=== PATIENT | male | born 1985 | race Caucasian/White ===

== ENCOUNTER 2023-10-29 12:21 | Outpatient (AMB) | payer OTHER, SELFPAY ==
--- NOTE | 2023-10-29 12:25 | A.OFFPC_ITS ---
Vital Signs 10/29/23 12:26 Height 5 ft 10 in Weight 231 lb BMI 33.1 BP 126/82 Blood Pressure Location Rt brachial Position Sitting Respiration 16 Pulse 83 Pulse Source Pulse Oximeter Temp 98.4 F Temp Source Temporal Artery Scan Pulse Oximetry (%) 96 Oxygen Delivery Method Room Air Intake Visit Reasons: est care Intake Note: Patient is here to establish care with KO. Patient shares concern for sleep apnea and/or constant sinus infections. Patient reports history of sinusitis 3 months in a row while living in [place]. Patient did not know what his medication doses are. 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 Accompanied by: Self / Same As Patient Allergies No Known Allergies Allergy (Verified 10/29/23 13:02) Tobacco use date assessed: 10/29/23 Dental Screening Dental Screen Date: 10/29/23 Did you have a dental visit in the last 12 months?: No Did you have a dental problem in the last 6 months where you did not have access to dental care?: No Was dental information given to patient?: Patient has dentist HPI HPI Comments History of Present Illness Details 38 y/o M with recurrent sinusitis, seaso nal allergies, bipolar 2, obesity, chronic upper back/neck pain Specialists: Psychiatry Health maintenance Tdap today Here today to est care. No old medical records last few months, nonstop nasal congestion. Left ear feels plugged. Assoc w/seasonal allergies. Using nasal saline. Has not been on AB recently for sinuses. Reports > 1 year ago. States he felt better after this. c/o freq urination over the last few years. Denies hematuria, dysuria. Reports wheezing, dyspnea on exertion. He has not been formally diagnosed with asthma. [facility] Medical History (Updated 10/29/23 @ 13:27 by Mary Coleman [facility]) Headache Bipolar 2 disorder Depression Anxiety GERD (gastroesophageal reflux disease) Surgical History (Updated 10/29/23 @ 12:50 by Lea Waite CMA) No pertinent past surgical history Family History (Updated 10/29/23 @ 12:48 by Lea Waite CMA) Mother Bipolar 2 disorder Hypertension Other Mental health disorder Social History (Updated 10/29/23 @ 12:42 by Lea Waite CMA) Household Members: Family Both parents involved: No Caregiver staying overnight: No Housing: House Housing Other:: With Brother Are you a primary critical care unit nurse to a significant other at home: No Do you presently have visiting nurse or other home services: No 75 years or older and lives alone: No Alcohol intake: never Patient Tobacco Use Status: Former Tobacco user Cigarette Packs Per Day: 0.5 Years Smoked: 10 e-Cigarette/Vaping Use: Currently Using Substance Use Type: Marijuana service: No Current occupational status: employed Current occupation: [employer] Current occupational exposures/hazards: No Sexual orientation: Straight/Heterosexual Gender identity: Male Cognitive needs: No Hearing needs: No Vision needs: Yes (wears glasses) Questionnaire PHQ-9 Over the last 2 weeks, how often have you been bothered by any of the following problems? 1. Little interest or pleasure in doing things: not at all 2. Feeling down, depressed, or hopeless: not at all 3. Trouble falling or staying asleep, or sleeping too much: nearly every day 4. Feeling tired or having little energy: nearly every day 5. Poor appetite or overeating: more than half the days 6. Feeling bad about yourself - or that you are a failure or have let yourself or your family down: several days 7. Trouble concentrating on things, such as reading the newspaper or watching television: not at all 8. Moving or speaking so slowly that other people could have noticed. Or the opposite - being so fidgety or restless that you have been moving around a lot more than usual: not at all 9. Thoughts that you would be better off or of hurting yourself in some way: not at all Total score: 9 Depression Screening Interpretation: Positive Depression Screening Follow-up: Existing condition and In treatment Depression Screening Done: Yes 53811 - PHQ-9 Billing: Yes Source: Developed by Drs. Sholmo Taylor, Sandra Reyes, David Monte and colleagues, with an educational nathaniel from [employer]. Thrive Questionnaire Date Thrive assessed: 10/29/23 I am a: Patient What is your living situation today?: I have a steady place to live Within the past 12 months, did the food you bought not last and you didn't have the money to get more?: Sometimes True Within the past 12 months, did you worry whether your food would run out before you got money to buy more?: Never true Do you have trouble paying for medicines?: No Do you have trouble getting transportation to medical appointments?: No Do you have trouble paying your heating and electricity bill?: No Do you have trouble taking care of your child, family member or friend?: No Do you have trouble with day-to-day activities such as bathing, preparing meals, shopping, managing finances, etc.?: No Are you currently unemployed and looking for a job?: Yes Are you interested in more education?: Yes Please select the resources that you would like help with: Job search/training Currently or been in a relationship where the following occur: no concerns reported THRIVE Score: 1 AUDIT C Alcohol Use Questionnaire (AUDIT-C) 1. How often do you have a drink containing alcohol?: Never 3. How often do you have six or more drinks on one occasion?: Never Total Score: 0 Score Reviewed/Action Taken: Yes IDANIA-7 AMB Questionnaire IDANIA-7 Date IDANIA - 7 assessed: 10/29/23 Feeling nervous, anxious, or on edge: 1 = Several days Not being able to stop or control worryin = More than half the days Worrying too much about different things: 2 = More than half the days Trouble relaxin = Several days Being so restless that it is hard to sit still: 0 = Not at all Becoming easily annoyed or irritable: 0 = Not at all Feeling afraid as if something awful might happen: 1 = Several days Total IDANIA-7 score (0-4 normal; 5-9 mild; 10-14 moderate; 15-21 severe): 7 Source: Developed by Drs. Shlomo Taylor, Sandra Reyes, David Monte and colleagues, with an educational nathaniel from [employer]. IDANIA-7 Assessment Billing IDANIA-7 Assessment Tool: IDANIA-7 Assessment 75371 Review of Systems Const All systems reviewed & are unremarkable except as noted in HPI and below Physical exam (Primary Care) Vital Signs: Last Vital Signs Temp 98.4 F 10/29/23 12:26 Pulse 83 10/29/23 12:26 Resp 16 10/29/23 12:26 BP 126/82 10/29/23 12:26 Pulse Ox 96 10/29/23 12:26 Oxygen Delivery Method Room Air 10/29/23 12:26 BMI result Body Mass Index 33.1 BMI Assessment/Plan discussion: High BMI High, discussed plan: lifestyle Tobacco/Smoking Status: Tobacco use Status Tobacco use date assessed 10/29/23 10/29/23 12:34 Patient Tobacco Use Status Former Tobacco user 10/29/23 12:45 e-Cigarette/Vaping Use Currently Using 10/29/23 12:45 PHQ-9: PHQ-9 Score PHQ-9: Total score 9 10/29/23 13:30 Depression Screening Interpretation: Positive Depression Screening Follow-up: Existing condition and In treatment Thrive Assessment: Date of Thrive Assessment Date Thrive assessed 10/29/23 10/29/23 12:45 Currently or been in a relationship where the following occur: no concerns reported Const Other: AWAKE ALERT NAD SCLERA AND CONJUNCTIVA CLEAR BILAT TM INTACT bilat with fluid bubbles bilat L>R Nares w/ thick mucoid d/c, turbinates pale and edematous bilat L>R, frontal sinus tenderness w palp MMM, PHARYNX + PND RRR LS CTAB, dim throughout Immunizations Boostrix Tdap 2.5 Lf unit-8 mcg-5 Lf/0.5 mL intramuscular syringe Performing Provider: SHELLY Flower Performing Location: [facility] Medicine Administered by: Lea Waite CMA on 10/29/23 13:31 Dose Route Admin Location Dispensed Lot Number Expiration Date NDC Oil Well Shooter 0.5 mL IM Left Deltoid 0.5 mL [id number] 02/03/26 [id number] Given Date VIS Provided VIS Publication Date 10/29/23 Single Vaccine 21 Eligibility Eligibility Date Funding Source Not [facility] Eligible 10/29/23 Private Assessment and Plan Assessment & Plan (1) Seasonal allergies: Comment: Continue use of kigh-rgj-qomtegj antihistamine. Refer to Allergy and immunology for testing and treatment. New prescription sent in for Nasonex 2 sprays each nostril daily. Okay to continue saline nasal rinses Code(s): J30.2 - Other seasonal allergic rhinitis (2) Recurrent sinusitis: Comment: Refer to Allergy and immunology. Has an acute bacterial infection. We will treat with antibiotics and prednisone. Take as directed. Avoid nasal decongestants both oral and sprays. Code(s): J32.9 - Chronic sinusitis, unspecified (3) Class 1 obesity with alveolar hypoventilation and body mass index (BMI) of 33.0 to 33.9 in adult: Comment: Education provided Code(s): E66.2 - Morbid (severe) obesity with alveolar hypoventilation; Z68.33 - Body mass index [BMI] 33.0-33.9, adult Qualifiers: Serious obesity comorbidity presence: without serious comorbidity Qualified Code(s): E66.2 - Morbid (severe) obesity with alveolar hypoventilation; Z68.33 - Body mass index [BMI] 33.0-33.9, adult (4) Wheezing: Comment: Noted on exam. Patient endorses a history of wheezing and feeling breathless with exertion. Has never been formally diagnosed with asthma. Has never used an inhaler. We will check PFTs to establish a baseline and or determine an asthma diagnosis. Code(s): R06.2 - Wheezing (5) Encounter for screening involving social determinants of health (SDoH): Comment: Refer to nurse navigation for a positive thrive screen. Code(s): Z13.9 - Encounter for screening, unspecified (6) Bipolar 2 disorder: Comment: Active with counselor and psychiatrist. Continue care and medications Code(s): F31.81 - Bipolar II disorder (7) Marijuana use: Comment: Cessation education provided Code(s): F12.90 - Cannabis use, unspecified, uncomplicated Orders: Orders Comprehensive [place]. Panel Fast Today Z00.00 - Encounter for general adult medical examination without abnormal findings Lipid Panel Today Z00.00 - Encounter for general adult medical examination without abnormal findings Microalbumin, Random (w Creat) Today Z00.00 - Encounter for general adult medical examination without abnormal findings TSH reflex Free T4 Today Z00.00 - Encounter for general adult medical examination without abnormal findings PSA, Ultra Sensitive Today Z00.00 - Encounter for general adult medical examination without abnormal findings UA w Microscopic Today Z00.00 - Encounter for general adult medical examination without abnormal findings Hemoglobin A1c Today Z00.00 - Encounter for general adult medical examination without abnormal findings Vitamin D 1,25 dihydroxy Today Z00.00 - Encounter for general adult medical examination without abnormal findings PFT pulmonary function test Today R06.2 - Wheezing TDaP Immunization Today Z23 - Encounter for immunization Referrals Nurse Navigator Referral Z13.9 - Encounter for screening, unspecified Allergy & Immunology Referral J30.2 - Other seasonal allergic rhinitis, J32.9 - Chronic sinusitis, unspecified Medications: New amoxicillin-pot clavulanate 875-125 mg 1 tab PO BID 14 tabs 0RF 7 days prednisone 20 mg PO DAILY 5 tabs 0RF mometasone 50 mcg/actuation (Nasonex 24hr Allergy) administer into each nostril 2 sprays intranasal DAILY 17 grams 3RF Patient Instructions: Return to office in 6-8 weeks to follow up on labs, PFTs. Sooner if you need anything. Please set up with the patient portal. Marijuana: Natural = Safe, Right? Marijuana is readily available to use in many states in the [facility]. Understanding the possible risks of use is important to ensure the safety. No matter how you use marijuana (smoke it, eat it, or apply to your skin), it may cause problems with both short term and ocean transportation intermediary use How marijuana affects your BRAIN: Potential effects from Short Term Use Poor focus, memory and reaction time Difficulty with problem solving Hallucinations, paranoia, anxiety Potential effects from Grid Maker Use Memory problems and trouble learning new things Depression, hallucinations, paranoia, anxiety, worsening PTSD symptoms addiction Brain. It is not safe to drive while on marijuana. It makes it hard to mail messenger contractor distance, concentrate, react quickly to signals and sounds, be alert and coordinated. If alcohol is combined, this risk is even higher! In regular users, some of the effects from jail use may last for days or even weeks after stopping marijuana. How inhaling marijuana affects your LUNGS: Inhaling harmful chemicals Gases Small particles Carcinogens (toxins linked to cancer) Breathing problems similar to tobacco smokers Daily cough with mucus Difficulty breathing Lung infections (bronchitis, pneumonia) Lungs How marijuana affects your HEART: Increases risk of heart attack Within the first hour of smoking Increases heart rate 20?100% increase after smoking Increase lasts up to three hours Changes in heart rhythm Feels like your heart skips a beat, or is fluttering, or beating too fast or too slow Heart Is it SAFE to use marijuana with other medications? A combination that can be concerning is the use of opioids and/or benzodiazepines with marijuana. Opioids + Benzodiazepines + Marijuana: Drowsiness: All three can cause drowsiness. Reaction time: All three can reduce reaction time. Do not drive or operate machinery. Overdose: Opioids and Benzodiazepines can cause reduced breathing and in some cases, breathing can stop and a person can . Marijuana containing higher levels of THC may cause difficulty with thinking and memory and this could result in medication errors where extra doses of opioids, benzodiazepines, or other medications may be taken. What is the harm? Example of Opioids Morphine (MS Contin?, Kailee?) Oxycodone (Percocet?, OxyContin?) Hydrocodone (Vicodin?, [place]?) Fentanyl (Duragesic?) Methadone Heroin Example of Benzodiazepines Lorazepam (Ativan?) Diazepam (Valium?) Alprazolam (Xanax?) Clonazepam (Klonopin?) If you have specific questions about the safety of using marijuana with other medications, please contact your provider or pharmacist. Some marijuana users can become addicted! You can have problems with marijuana withdrawal. You may have withdrawal symptoms the day after you stop using. These can get worse 2 to 3 days after using and can take 1 to 2 weeks or longer to go away. Recovery and Treatment Contact your provider or health care team if you are having concerns about your marijuana use or to learn more about available treatment services. The marijuana plant is not an FDA-approved medicine: The U.S. Food and Drug Administration (FDA) has not approved the marijuana plant as a medication due to lack of studies on the risks and benefits. Marijuana contains over 100 chemical substances known as cannabinoids. Some of these, like tetrahydrocannabinol (THC), have mind altering effects and can be intoxicating. Cannabidiol (CBD), another cannabinoid, does not cause the same ?high? users of THC experience. THC has been studied for the treatment of several conditions, including nausea and increasing appetite. CBD is similarly being studied for a number of conditions, including childhood epilepsy and inflammation. What is dif ferent between the marijuana product I get from the marijuana shop and a prescription from the pharmacy? The right dose of any medicine is important. A specific dose of THC is approved to treat nausea, but high doses of THC may cause vomiting. The ingredients in a medicine must be measured and stay the same from one dose to the next. The marijuana plant contains unknown ingredients that change from plant to plant. This makes it hard to control the ?dose? of marijuana needed to treat a condition and use it in the same way we use other medicines. Future studies are ongoing to establish the role of the marijuana plant and the cannabinoids found in the plant for treatment of medical conditions. If you have questions about using a marijuana product for a medical condition, please discuss this with your medical provider to determine the most appropriate treatment for you. [place] Providers are not able to prescribe marijuana products. Information in this document was compiled by the [facility] of Excellence in Substance Abuse treatment and Education ([facility]). It contains information from factsheets by the National [place] on Drug Abuse (www.drugabuse.gov) and presentation by Mable Burnham, Mable Moore, & Radha Bhatia (2010) entitled ?What providers need to know about cannabis use in Veterans with mental health conditions: Research, policy, practice,? and an additional reference: Susy Underwood M.D., Donte Hernandez, Ph.D., Bran Dominguez M.D., and Denae Quinones, Ph.D: Adverse Effects of Marijuana. N Engl J Med 2014; 370:8615-3517, December 01, 2013 DOI: 10.1056/FSOPey1542832. [facility] Academic Detailing Service What Is It? Sinuses are air-filled spaces behind the bones of the upper face: between the eyes and behind the forehead, nose and cheeks. The lining of the sinuses are made up of cells with tiny hairs on their surfaces called cilia. Other cells in the lining produce mucus. The mucus traps germs and pollutants and the cilia push the mucus out through narrow sinus openings into the nose. When the sinuses become inflamed or infected, the mucus thickens and clogs the openings to one or more sinuses. Fluid builds up inside the sinuses causing increased pressure. Also bacteria can become trapped, multiply and infect the lining. This is sinusitis. Prevention There are some measures you can take to decrease your risk of developing sinusitis. If you smoke cigarettes, you should quit. The smoke can irritate nasal passageways and increase the likelihood of infection. Nasal allergies can trigger sinus infections, too. By identifying the allergen (the substance causing the allergic reaction) and avoiding it, you can help prevent sinusitis. If you have congestion from a cold or allergies, the following may help to reduce the risk of developing sinusitis: Drink lots of water. This thins nasal secretions and keeps mucous membranes moist. Use steam to soothe nasal passages. Breathe deeply while standing in a hot shower, or inhale the vapor from a basin filled with hot water while holding a towel over your head. Avoid blowing your nose with great force, which can push bacteria into the sinuses. Some doctors advise periodic home nasal washings to clear secretions. This may help prevent, and also treat, sinus infections. Treatment Many sinus infections improve without treatment. However, several medications may speed recovery and reduce the chance that an infection will become chronic. Decongestants - Congestion often triggers sinus infections, and decongestants can open the sinuses and allow them to drain. Several are available: Pseudoephedrine (Sudafed) is available without prescription, alone or in combination with other medications in multi-symptom cold and sinus remedies. Pseudoephedrine can cause insomnia, racing pulse and jitteriness. Do not use if you have high blood pressure or a heart condition. Phenylephrine (such as Sudafed PE) is an alternative jrmw-xhz-bplsolg oral decongestant. If you take products containing oral phenylephrine, check with the pharmacist to be certain there is no interaction with other medications you take. Oxymetazoline (Afrin Dristan and others) and phenylephrine (Sergio-Synephrine and others) are found in nasal sprays. They are effective and may be less likely to cause the side effects seen with pseudoephedrine. However, using a nasal decongestant for more than three days can cause worse symptoms when you stop the medication. This is called the rebound effect. Antihistamines - These medications help to relieve the symptoms of nasal allergies that lead to inflammation and infections. However, some doctors advise against using antihistamines during a sinus infection because they can cause excessive drying and slow the drainage process. Bqsy-avt-rpmanym antihistamines include diphenhydramine (Benadryl and others), chlorpheniramine (Chlor-Trimeton and others) and loratadine (Claritin). Fexofenadine (Crystal) and cetrizine (Zyrtec) are available by prescription. Nasal steroids - Anti-inflammatory sprays such as mometasone (Nasonex) and fluticasone (Flonase), both available by prescription, reduce swelling of nasal membranes. Like antihistamines, nasal steroids can be most useful for those who have nasal allergies. Nasal steroids tend to produce less drying than antihistamines. Unlike nasal decongestants, nasal steroids can be used for prolonged periods. Saline nasal sprays - These salt-water sprays are safe to use and can provide some relief by adding moisture to the nasal passages, thinning mucus secretions and helping to flush out any bacteria that may be present. Pain relievers - Acetaminophen (Tylenol), ibuprofen (Advil, Motrin and others) or naproxen (Aleve) can be taken sinus pain. Antibiotics - Your doctor may prescribe an antibiotic if he or she suspects that a bacterial infection is causing your sinusitis. If you start taking an antibiotic, complete the entire course so that the infection is completely killed off. Not all cases of sinusitis require antibiotic treatment: Talk with your doctor about whether an antibiotic is right for you. Keep in mind that antibiotics can cause side effects, such as allergic reactions, rash and diarrhea. In addition, overusing antibiotics eventually leads to the spread of bacteria that no longer can be killed by the most commonly prescribed antibiotics. When To Call A Professional Contact a doctor if you experience facial pain along with a headache and fever, cold symptoms that last longer than seven to 10 days, or persistent green discharge from the nose. If your symptoms don't improve within a week of beginning treatment, call your doctor. Call sooner if symptoms are getting worse. If you have repeated bouts of acute sinusitis, you may have allergies or another treatable cause of sinus congestion. Ask your doctor for advice. Coding Level of Care Code New Pt Level 4 (80476) Diagnoses Seasonal allergies J30.2 Recurrent sinusitis J32.9 Class 1 obesity with alveolar hypoventilation without serious comorbidity with body mass index (BMI) of 33.0 to 33.9 in adult E66.2; Z68.33 Serious obesity comorbidity presence: without serious comorbidity Wheezing R06.2 Encounter for screening involving social determinants of health (SDoH) Z13.9 Bipolar 2 disorder F31.81 Marijuana use F12.90 Additional Codes IDANIA-7 Assessment Billing - IDANIA-7 Assessment Tool: IDANIA-7 Assessment 31930 ([id number])
[2023-10-29 12:26] VITALS: BP 126/82; PULSE 83; RESP 16; TEMP 36.9; O2SAT 96; BMI 33.1
== END 2023-10-29 13:40 | disposition home or self-care (01) ==
PROVIDERS: Visit Provider Nurse Practitioner Family
DX: J30.2 Other seasonal allergic rhinitis (principal); F31.81 Bipolar II disorder; E66.2 Morbid (severe) obesity with alveolar hypoventilation; Z23 Encounter for immunization; J32.9 Chronic sinusitis, unspecified; Z68.33 Body mass index [BMI] 33.0-33.9, adult; R06.2 Wheezing; F12.90 Cannabis use, unspecified, uncomplicated
CPT/HCPCS: 90471; 90715; 99204

== ENCOUNTER 2023-12-03 10:03 | Outpatient (AMB) | payer OTHER, SELFPAY ==
--- NOTE | 2023-12-03 10:19 | MHC.PC.OV ---
Intake Visit Reasons: Rash Intake Note: Rash Allergies No Known Allergies Allergy (Verified 12/03/23 10:21) Tobacco use date assessed: 12/03/23 Dental Screening Dental Screen Date: 10/29/23 [facility] Medical History (Updated 10/29/23 @ 13:27 by Mary Coleman [facility]) Headache Bipolar 2 disorder Depression Anxiety GERD (gastroesophageal reflux disease) Surgical History (Updated 10/29/23 @ 12:50 by Lea Waite CMA) No pertinent past surgical history Family History (Updated 10/29/23 @ 12:48 by Lea Waite CMA) Mother Bipolar 2 disorder Hypertension Other Mental health disorder Social History (Updated 10/29/23 @ 12:42 by Lea Waite CMA) Household Members: Family Both parents involved: No Caregiver staying overnight: No Housing: House Housing Other:: With Brother Are you a primary small animal caretaker to a significant other at home: No Do you presently have visiting nurse or other home services: No 75 years or older and lives alone: No Alcohol intake: never Patient Tobacco Use Status: Former Tobacco user Cigarette Packs Per Day: 0.5 Years Smoked: 10 e-Cigarette/Vaping Use: Currently Using Substance Use Type: Marijuana service: No Current occupational status: employed Current occupation: [employer] Current occupational exposures/hazards: No Sexual orientation: Straight/Heterosexual Gender identity: Male Cognitive needs: No Hearing needs: No Vision needs: Yes (wears glasses) Questionnaire Thrive Questionnaire Date Thrive assessed: 10/29/23 IDANIA-7 AMB Questionnaire IDANIA-7 Date IDANIA - 7 assessed: 10/29/23 Source: Developed by Drs. Shlomo Taylor, Sandra Reyes, David Monte and colleagues, with an educational nathaniel from [employer]. Physical exam (Primary Care) Tobacco/Smoking Status: Tobacco use Status Tobacco use date assessed 10/29/23 10/29/23 12:34 Patient Tobacco Use Status Former Tobacco user 10/29/23 12:45 e-Cigarette/Vaping Use Currently Using 10/29/23 12:45 Thrive Assessment: Date of Thrive Assessment Date Thrive assessed 10/29/23 10/29/23 12:45 Coding
--- NOTE | 2023-12-03 10:25 | MHC.OFFWIV ---
Intake Vital Signs 12/03/23 10:26 Height 5 ft 10 in Weight 244 lb 2 oz BMI 35.0 BP 104/78 Blood Pressure Location Rt brachial Position Sitting Respiration 14 Pulse 72 Pulse Source Pulse Oximeter Temp 97.9 F Temp Source Oral Pulse Oximetry (%) 99 Oxygen Delivery Method Room Air Intake Visit Reasons: Rash Intake Note: Rash on right side and upper left arm. Patient Tobacco Use Status: Former Tobacco user Allergies No Known Allergies Allergy (Verified 12/03/23 10:25) Medication List - Last Reconciled 12/03/23 by Acacia De PA-C amoxicillin-pot clavulanate 875-125 mg 1 tab PO BID 7 days bupropion HCl XL (Wellbutrin XL) 150 mg PO DAILY citalopram 40 mg PO DAILY clonazepam 0.5 mg (1/2 x 1 mg) PO DAILY clotrimazole 1% 1 appl topical BID 2 weeks divalproex ER (Depakote ER) 1,000 mg (2 x 500 mg) PO .AT BEDTIME fluticasone propionate 50 mcg/actuation 1 spray intranasal BID gabapentin 300 mg PO BID lamotrigine 150 mg PO DAILY prednisone 20 mg PO DAILY Do you need a note to return to daycare/school/sports/work: No HPI Rash HPI Details Patient is a 38-year-old male who presents today with complaints of a rash that started on his right low back that started about a week a half ago and then spread to his left upper arm. He states that the last 2 days it has been slightly itchy. He states for the most part it does not bother him. He states that they are ring-like and he wonders if he has ringworm. [place] he was sharing towels with people. No tick bites, fever, chills, arthralgias. No contacts with similar symptoms. He did try some hydrocortisone which did not change the symptoms at all. [facility] Medical History (Updated 12/03/23 @ 13:46 by Acacia De PA-C) Headache Bipolar 2 disorder Depression Anxiety GERD (gastroesophageal reflux disease) Surgical History (Updated 10/29/23 @ 12:50 by Lea Waite, [facility]) No pertinent past surgical history Family History (Updated 10/29/23 @ 12:48 by Lea Waite CMA) Mother Bipolar 2 disorder Hypertension Other Mental health disorder Social History (Updated 10/29/23 @ 12:42 by Lea Waite CMA) Household Members: Family Housing: House Housing Other:: With Brother Are you a primary neonatal intensive care nurse to a significant other at home: No Do you presently have visiting nurse or other home services: No Alcohol intake: never Patient Tobacco Use Status: Former Tobacco user Cigarette Packs Per Day: 0.5 Years Smoked: 10 e-Cigarette/Vaping Use: Currently Using Substance Use Type: Marijuana service: No Current occupational status: employed Current occupation: [employer] Current occupational exposures/hazards: No Sexual orientation: Straight/Heterosexual Gender identity: Male Cognitive needs: No Hearing needs: No Vision needs: Yes (wears glasses) Physical Exam Vital Signs: Last Vital Signs Temp 97.9 F 12/03/23 10:26 Pulse 72 12/03/23 10:26 Resp 14 12/03/23 10:26 BP 104/78 12/03/23 10:26 Pulse Ox 99 12/03/23 10:26 Oxygen Delivery Method Room Air 12/03/23 10:26 BMI result Body Mass Index 35.0 Const Orientation/consciousness: patient oriented x3 HEENT Ears: hearing grossly normal bilaterally Resp Auscultation: clear to auscultation bilaterally Cardio Rate: regular rate Rhythm: regular rhythm Heart sounds: S1 normal heart sound present and S2 normal heart sound present Skin Other: There is a large, circular rash noted on the right flank with a center if clearing and a raised, erythematous outer ring. There is a smaller similar rash noted on the left upper extremity that has about 6 ring-like lesions with the center of clearing and an erythematous, raised border. The area is nontender. The skin is intact. No areas of fluctuance or induration. Neuro General: patient oriented x3, gait normal and no focal motor deficits Assessment & Plan Assessment & Plan (1) Tinea corporis: Code(s): B35.4 - Tinea corporis Plan: Physical exam appears consistent with tinea. Advised patient to try clotrimazole cream. Follow up in a few weeks. If anything worsens or changes he will follow up sooner. Patient understands and agrees with the plan. Medications: New clotrimazole 1% 1 appl topical BID 2 weeks 45 grams 2RF Coding Level of Care Code Est Pt Level 3 (14342) Diagnoses Tinea corporis B35.4
[2023-12-03 10:26] VITALS: BP 104/78; PULSE 72; RESP 14; TEMP 36.6; O2SAT 99; BMI 35.0
== END 2023-12-03 10:44 | disposition home or self-care (01) ==
PROVIDERS: PCP Nurse Practitioner Family; Visit Provider Physician Assistant
DX: B35.4 Tinea corporis (principal)
CPT/HCPCS: 99213

== ENCOUNTER 2023-12-03 10:54 | Outpatient (REF) | payer OTHER, SELFPAY ==
[2023-12-03 14:18] LABS: Estimated Average Glucose 108 mg/dL; Hemoglobin A1c % 5.4 % (<6.0)
[2023-12-03 14:31] LABS: Alanine Aminotransferase 27 U/L (0-40); Albumin Level 4.4 g/dL (3.5-5.0); Alkaline Phosphatase 65 U/L (39-117); Anion Gap 13 (12-20); Aspartate Amino Transferase 18 U/L (5-37); Bilirubin Total 0.2 mg/dL (0.0-1.0); Blood Urea Nitrogen 13 mg/dL (9-16); Calcium 9.6 mg/dL (8.4-10.2); Carbon Dioxide 23 mmol/L (22-29); Chloride 108 mmol/L (96-108); Cholesterol 220 mg/dL (<200); Estimated Glomerular Filt Rate > 60; Glucose Fasting 96 mg/dL (60-99); HDL Cholesterol 53 mg/dL (>40); LDL Cholesterol Calculated 154 mg/dL (<100); Potassium 4.4 mmol/L (3.3-5.1); Sodium 140 mmol/L (135-145); Total Protein 7.3 g/dL (6.5-8.0); Triglycerides 67 mg/dL (<150)
[2023-12-03 14:48] LABS: TSH reflex Free T4 3.99 uIU/mL (0.32-4.0)
[2023-12-03 15:16] LABS: Creatinine Urine 127.97 mg/dL; Microalbum/Creatinine Ratio Ur 7.8 ug/mg cr (<30)
[2023-12-10 12:38] LABS: VITAMIN D (1,25 OH) D3 42 pg/mL; Vit D (1,25-Dihydroxy) Total 42 pg/mL (18-72); Vitamin D (1,25 OH) D2 <8 pg/mL
[2023-12-10 20:39] LABS: PSA, Ultra Sensitive 0.28 ng/mL
== END 2023-12-03 10:55 | disposition home or self-care (01) ==
LOC: HO.WFDLDS 10:54
PROVIDERS: Visit Provider Nurse Practitioner Family
DX: Z00.00 Encounter for general adult medical examination without abnormal findings (principal)
CPT/HCPCS: 36415; 80053; 80061; 82043; 82570; 82652; 83036; 84153; 84443

== ENCOUNTER 2024-01-08 13:15 | Outpatient (AMB) | payer OTHER, SELFPAY ==
--- NOTE | 2024-01-08 13:20 | A.OFFPC_ITS ---
Vital Signs 01/08/24 13:25 Height 5 ft 10 in Weight 237 lb BMI 34.0 BP 126/64 Blood Pressure Location Lt brachial Position Sitting Respiration 13 Pulse 83 Pulse Source Pulse Oximeter Pulse Oximetry (%) 98 Oxygen Delivery Method Room Air Intake Visit Reasons: 6-8 WEEKS 30 MIN W ME FU PFT, LABS Intake Note: Patient is here to follow up from appointment about 6-8 weeks ago. Patient reports he cannot get into allergy until January. Patient is interested in a referal for snoring. Ag Equipment Field Service Technician Required: No Accompanied by: Self / Same As Patient Allergies No Known Allergies Allergy (Verified 01/08/24 13:28) Medication List - Last Reconciled 01/08/24 by Mary Coleman, [employer]- bupropion HCl XL (Wellbutrin XL) 150 mg PO DAILY citalopram 40 mg PO DAILY clonazepam 0.5 mg (1/2 x 1 mg) PO DAILY clotrimazole 1% 1 appl topical BID 2 weeks divalproex ER (Depakote ER) 1,000 mg (2 x 500 mg) PO .AT BEDTIME fluticasone propionate 50 mcg/actuation 1 spray intranasal BID gabapentin 300 mg PO BID lamotrigine 150 mg PO DAILY Tobacco use date assessed: 10/29/23 Dental Screening Dental Screen Date: 10/29/23 HPI HPI Comments History of Present Illness Details 38 y/o M with recurrent sinusitis, seaso nal allergies, bipolar 2, obesity, chronic upper back/neck pain, cannabis use Specialists: Psychiatry Allergy & Immunology Health maintenance Tdap 10/2023 Here today for routine follow up of chronic conditions. Since last office visit, he contracted tinea corporis which was resolved with topical antifungal. The note from urgent care in November was reviewed today. PFTs were ordered back in October however these are pending at this time. The patient continues to wheeze. In regards to the snoring, this continues to be a big problem for him. Does admit that he had a short-lived. Of improvement while he was being treated for the sinusitis with prednisone. However once this was completed the snoring returned. Associated with daytime somnolence. Is willing to undergo a sleep study He has a initial appointment with Allergy and immunology in January. He was using the Flonase daily until about 1 week ago as he was not sure if he should continue this or not. Continues to have periods where he can not breathe at a 1 side of his nose. The below was reviewed with him today. Labs 12/03/2023 show normal electrolytes, normal renal function, hemoglobin A1c 5. 4%, normal LFTs, total cholesterol 220, LDL 154, HDL 53, normal TSH, normal urine microalbumin creatinine ratio, PSA, vitamin-D normal AWAKE ALERT NAD SCLERA AND CONJUNCTIVA CLEAR BILAT TM INTACT bilat with fluid bubbles bilat L>R Nares clear, turbinates pale and edematous bilat ,no sinus tenderness w palp MMM, PHARYNX clear RRR LS CTAB, dim throughout Mood & affect appropriate Plan: PFT will need to be done at [facility] as no avail @ [facility] order updated to have done @ [facility] Check home sleep study to evaluate for sleep apnea. Continue Flonase daily Follow up with Allergy and immunology as scheduled in January Follow up in about 2 months so that we can review the sleep study, the allergy consult as well as the pulmonary function test. Return to the office sooner as needed. This note is constructed using voice recognition software. While every effort has been made to ensure accuracy in mud temperer, still errors may have been included Sometimes, these errors may affect the content or meaning of the given sentence . Total time spent caring for the patient today was 31 minutes. This includes time spent before the visit reviewing the chart, time spent during the visit, and time spent after the visit on documentation [facility] Medical History (Updated 01/08/24 @ 13:58 by Mary Coleman [facility]) Headache Bipolar 2 disorder Depression Anxiety GERD (gastroesophageal reflux disease) Surgical History (Updated 10/29/23 @ 12:50 by Lea Waite CMA) No pertinent past surgical history Family History (Updated 10/29/23 @ 12:48 by Lea Waite CMA) Mother Bipolar 2 disorder Hypertension Other Mental health disorder Social History (Updated 10/29/23 @ 12:42 by Lea Waite CMA) Household Members: Family Both parents involved: No Caregiver staying overnight: No Housing: House Housing Other:: With Brother Are you a primary child care attendant school to a significant other at home: No Do you presently have visiting nurse or other home services: No 75 years or older and lives alone: No Alcohol intake: never Patient Tobacco Use Status: Former Tobacco user Cigarette Packs Per Day: 0.5 Years Smoked: 10 e-Cigarette/Vaping Use: Currently Using Substance Use Type: Marijuana service: No Current occupational status: employed Current occupation: [employer] Current occupational exposures/hazards: No Sexual orientation: Straight/Heterosexual Gender identity: Male Cognitive needs: No Hearing needs: No Vision needs: Yes (wears glasses) Questionnaire Thrive Questionnaire Date Thrive assessed: 10/29/23 IDANIA-7 AMB Questionnaire IDANIA-7 Date IDANIA - 7 assessed: 10/29/23 Source: Developed by Drs. Shlomo Taylor, Sandra Reyes, David Monte and colleagues, with an educational nathaniel from [employer]. Physical exam (Primary Care) Vital Signs: Last Vital Signs Pulse 83 01/08/24 13:25 Resp 13 01/08/24 13:25 BP 126/64 01/08/24 13:25 Pulse Ox 98 01/08/24 13:25 Oxygen Delivery Method Room Air 01/08/24 13:25 BMI result Body Mass Index 34.0 Tobacco/Smoking Status: Tobacco use Status Tobacco use date assessed 10/29/23 01/08/24 13:26 Patient Tobacco Use Status Former Tobacco user 01/08/24 13:26 Tobacco use type 12/03/23 10:54 e-Cigarette/Vaping Use Currently Using 01/08/24 13:26 Thrive Assessment: Date of Thrive Assessment Date Thrive assessed 10/29/23 01/08/24 13:26 Assessment and Plan Assessment & Plan (1) Wheezing: Comment: Patient endorses a history of wheezing and feeling breathless with exertion. Has never been formally diagnosed with asthma. Has never used an inhaler. We will check PFTs to establish a baseline and or determine an asthma diagnosis. Code(s): R06.2 - Wheezing (2) Recurrent sinusitis: Comment: Refer to Allergy and immunology. Avoid nasal decongestants both oral and sprays. Code(s): J32.9 - Chronic sinusitis, unspecified (3) Seasonal allergies: Comment: Continue use of [id number] antihistamine. Refer to Allergy and immunology for testing and treatment. Okay to continue saline nasal rinses Code(s): J30.2 - Other seasonal allergic rhinitis Orders: Orders RT home sleep study Today R06.83 - Snoring, R40.0 - Somnolence Medications: Refilled fluticasone propionate 50 mcg/actuation administer into each nostril 1 spray intranasal BID 16 grams 7RF Coding Level of Care Code Est Pt Level 4 (25771) Complex EM visit Add On G2211 Diagnoses Wheezing R06.2 Recurrent sinusitis J32.9 Seasonal allergies J30.2
[2024-01-08 13:25] VITALS: BP 126/64; PULSE 83; RESP 13; O2SAT 98; BMI 34.0
--- NOTE | 2024-01-08 13:26 | A.OFFPC_ITS ---
Vital Signs 01/08/24 13:25 Height 5 ft 10 in Weight 237 lb BMI 34.0 BP 126/64 Blood Pressure Location Lt brachial Position Sitting Respiration 13 Pulse 83 Pulse Source Pulse Oximeter Pulse Oximetry (%) 98 Oxygen Delivery Method Room Air Intake Visit Reasons: 6-8 WEEKS 30 MIN W ME FU PFT, LABS Allergies No Known Allergies Allergy (Verified 01/08/24 13:28) Tobacco use date assessed: 10/29/23 Dental Screening Dental Screen Date: 10/29/23 HPI HPI Comments History of Present Illness Details DUPLICATE ENCOUNTER, SEE OTHER NOTE FROM TODAY. this encounter [facility] Medical History (Updated 12/07/23 @ 16:49 [facility] Headache Bipolar 2 disorder Depression Anxiety GERD (gastroesophageal reflux disease) Surgical History (Updated 10/29/23 @ 12:50 by Lea Waite CMA) No pertinent past surgical history Family History (Updated 10/29/23 @ 12:48 by Lea Waite CMA) Mother Bipolar 2 disorder Hypertension Other Mental health disorder Social History (Updated 10/29/23 @ 12:42 by Lea Waite CMA) Household Members: Family Both parents involved: No Caregiver staying overnight: No Housing: House Housing Other:: With Brother Are you a primary care director to a significant other at home: No Do you presently have visiting nurse or other home services: No 75 years or older and lives alone: No Alcohol intake: never Patient Tobacco Use Status: Former Tobacco user Cigarette Packs Per Day: 0.5 Years Smoked: 10 e-Cigarette/Vaping Use: Currently Using Substance Use Type: Marijuana service: No Current occupational status: employed Current occupation: [employer] Current occupational exposures/hazards: No Sexual orientation: Straight/Heterosexual Gender identity: Male Cognitive needs: No Hearing needs: No Vision needs: Yes (wears glasses) Questionnaire Thrive Questionnaire Date Thrive assessed: 10/29/23 IDANIA-7 AMB Questionnaire IDANIA-7 Date IDANIA - 7 assessed: 10/29/23 Source: Developed by Drs. Shlomo Taylor, Sandra Reyes, David Monte and colleagues, with an educational nathaniel from [employer]. Physical exam (Primary Care) Vital Signs: Last Vital Signs Pulse 83 01/08/24 13:25 Resp 13 01/08/24 13:25 BP 126/64 01/08/24 13:25 Pulse Ox 98 01/08/24 13:25 Oxygen Delivery Method Room Air 01/08/24 13:25 BMI result Body Mass Index 34.0 Tobacco/Smoking Status: Tobacco use Status Tobacco use date assessed 10/29/23 01/08/24 13:26 Patient Tobacco Use Status Former Tobacco user 01/08/24 13:26 Tobacco use type 12/03/23 10:54 e-Cigarette/Vaping Use Currently Using 01/08/24 13:26 Thrive Assessment: Date of Thrive Assessment Date Thrive assessed 10/29/23 01/08/24 13:26 Coding Level of Care Code Left Without Being Seen
== END 2024-01-08 13:54 | disposition home or self-care (01) ==
PROVIDERS: PCP Nurse Practitioner Family; Visit Provider Nurse Practitioner Family
DX: R06.2 Wheezing (principal); J32.9 Chronic sinusitis, unspecified; J30.2 Other seasonal allergic rhinitis
CPT/HCPCS: 99214; G2211

== ENCOUNTER 2024-02-24 10:07 | Outpatient (AMB) | payer OTHER, SELFPAY ==
--- NOTE | 2024-02-24 10:08 | A.OFFVIS_ITS ---
Vital Signs 02/24/24 10:09 Height 5 ft 10 in Weight 247 lb 6 oz BMI 35.5 BP 112/68 Blood Pressure Location Rt brachial Position Sitting Pulse 79 Pulse Source Pulse Oximeter Pulse Oximetry (%) 95 Oxygen Delivery Method Room Air Intake Visit Reasons: wheezing/ SOB Allergies No Known Allergies Allergy (Verified 02/24/24 10:12) HPI HPI wheezing/ SOB: Details: Roque is a pleasant 39 year old male, former smoker with less than 10 pack year history, with underlying environmental allergies, GERD, anxiety, depression and bipolar 2. He was referred by PCP for pulmonary evaluation. He reports ongoing dyspnea on exertion, occasionally at rest, for the past few years and more recently with associated wheezing. He denies cough and chest tightness. He denies prior diagnosis of asthma. He does note environmental allergies, using a daily antihistamine with poor effect. He does have a new cat at home x 4 months, triggering symptoms at times. He has an upcoming allergy evaluation in February with [facility]. He also reports for the last few years sinusitis during the spring. He is scheduled for upcoming home sleep study for symptosm suggestive of PADMINI including daytime fatigue, loud snoring, and witnessed apneas. He reports mother with PADMINI, otherwise denies pertinent family history. He denies any occupational exposures. [facility] Medical History (Updated 02/24/24 @ 10:57 by Ruba Sethi NP) Headache Bipolar 2 disorder Depression Anxiety GERD (gastroesophageal reflux disease) Surgical History (Updated 10/29/23 @ 12:50 by Lea Waite CMA) No pertinent past surgical history Family History (Updated 10/29/23 @ 12:48 by Lea Waite CMA) Mother Bipolar 2 disorder Hypertension Other Mental health disorder Social History Household Members: Family Both parents involved: No Caregiver staying overnight: No Housing: House Housing Other:: With Brother Are you a primary medicare compliance auditor to a significant other at home: No Do you presently have visiting nurse or other home services: No 75 years or older and lives alone: No Alcohol intake: never Patient Tobacco Use Status: Former Tobacco user Cigarette Packs Per Day: 0.5 Years Smoked: 10 e-Cigarette/Vaping Use: Currently Using Substance Use Type: Marijuana service: No Current occupational status: employed Current occupation: [employer] [place] Current occupational exposures/hazards: No Sexual orientation: Straight/Heterosexual Gender identity: Male Cognitive needs: No Hearing needs: No Vision needs: Yes (wears glasses) Review of Systems Const Denies chills, Denies excessive sweating, Denies fever(s), Denies headache(s) and Denies night sweats Eyes Denies dry eyes and Denies irritation ENT Reports Normal hearing present, Denies headache(s), Denies nasal congestion, Denies nasal discharge, Denies post nasal drip and Denies sore throat Card Denies chest pain, Denies chest pain at rest, Denies chest pain with activity, Denies claudication, Denies leg edema and Denies orthopnea Resp Denies chest congestion, Denies cough, Denies excessive phlegm production, Denies pain on inspiration, Denies pain with cough and Denies stridor Musc Denies myalgias Neuro Reports Normal hearing present and Denies headache(s) Endo Denies excessive sweating Ruben/Lymph Denies lymphadenopathy Aller/Immun Denies seasonal rhinorrhea Physical Exam Vital Signs: Last Vital Signs Pulse 79 02/24/24 10:09 BP 112/68 02/24/24 10:09 Pulse Ox 95 02/24/24 10:09 Oxygen Delivery Method Room Air 02/24/24 10:09 BMI result Body Mass Index 35.5 Const General: cooperative, healthy appearing, comfortable, no acute distress, well developed and alert Nutritional Appearance: obese Orientation/consciousness: patient oriented x3 Limitations: no limitations HEENT Head: Yes normal to inspection, Yes normocephalic and Yes atraumatic Ears: hearing grossly normal bilaterally and external ears normal Eyes General: appearance normal, both eyes and all related structures Eyelids: Yes eyelids normal Sclerae: sclerae normal EOM: EOMs intact bilaterally Neck Neck: Yes normal visual inspection and Yes no lymphadenopathy Lymphatic: no lymphadenopathy noted Chest Chest palpation & inspection: normal inspection of the chest Resp Effort & Inspection: normal respiratory effort, able to speak in complete sentences, no audible wheezes, no cough, no stridor, not tachypneic, no tripod positioning and no use of accessory muscles Auscultation: diminished lung sounds Cardio Jugular venous distension: no JVD Rate: regular rate Rhythm: regular rhythm Skin Other: warm, dry General skin exam: no rashes or lesions noted Neuro General: patient oriented x3 Cranial nerves: Yes Normal hearing present Cognition (Neuro): normal cognition Gait exam (Neuro): Normal gait present Extrem General: Yes normal to inspection, Yes capillary refill normal, Yes no clubbing, cyanosis or edema and Yes no pedal edema Psych Appearance: grossly normal and well kempt Speech and movement: Normal speech and movement present and Clear speech present Affect: normal affect Attitude: cooperative Thought process: Normal thought process present Thought content: Normal thought content present Insight: Good insight present (Psych) Judgement: Good judgement present (Psych) Assessment & Plan Assessment & Plan (1) Dyspnea: Code(s): R06.00 - Dyspnea, unspecified Category: Medical (2) Seasonal allergies: Code(s): J30.2 - Other seasonal allergic rhinitis Category: Medical Plan Roque presents for pulmonary evaluation for dyspnea and wheezing. Unclear etiology although likely has significant allergic component. Will send for PFT to assess for obstructive defect contributing to symptoms. He is requesting this order be sent to [facility]. He also has an upcoming sleep study and allergy referral. Will follow up to review consultations and PFT results. All questions were answered and patient is in agreement of plan. Orders: Orders PFT pulmonary function test Today R06.00 - Dyspnea, unspecified Coding Level of Care Code New Pt Level 3 (49593) Diagnoses Dyspnea R06.00 Seasonal allergies J30.2
[2024-02-24 10:09] VITALS: BP 112/68; PULSE 79; O2SAT 95; BMI 35.5
== END 2024-02-24 10:38 | disposition home or self-care (01) ==
PROVIDERS: PCP Nurse Practitioner Family; Referring Provider Nurse Practitioner Family; Visit Provider Nurse Practitioner Family
DX: R06.00 Dyspnea, unspecified (principal); J30.2 Other seasonal allergic rhinitis
CPT/HCPCS: 99203

== ENCOUNTER → 2024-02-24 10:07 | Outpatient (BNVA) | payer OTHER, SELFPAY | PROVIDERS: PCP Nurse Practitioner Family; Referring Provider Nurse Practitioner Family; Visit Provider Nurse Practitioner Family | DX: R06.00 Dyspnea, unspecified (principal); G47.33 Obstructive sleep apnea (adult) (pediatric); J30.2 Other seasonal allergic rhinitis; Z87.891 Personal history of nicotine dependence | CPT/HCPCS: 99202 ==

== ENCOUNTER → 2024-03-31 12:48 | Outpatient (REF) | payer OTHER, SELFPAY | LOC: HO.SL 12:48 | PROVIDERS: PCP Nurse Practitioner Family; Visit Provider Nurse Practitioner Family | DX: R06.83 Snoring (principal); R40.0 Somnolence | CPT/HCPCS: 95806 ==

== ENCOUNTER → 2024-04-02 13:10 | Outpatient (BNV) | payer OTHER, SELFPAY | PROVIDERS: PCP Nurse Practitioner Family; Visit Provider Psychiatry & Neurology Neurology | DX: R06.83 Snoring (principal) | CPT/HCPCS: 95806 ==

== ENCOUNTER 2024-04-28 16:05 | Outpatient (AMB) | payer OTHER, SELFPAY ==
--- NOTE | 2024-04-28 15:18 | A.OFFPC_ITS ---
Intake Visit Reasons: telehealth fu Allergies No Known Allergies Allergy (Verified 04/28/24 15:18) Medication List - Last Reconciled 04/28/24 by SHELLY Flower bupropion HCl XL (Wellbutrin XL) 150 mg PO DAILY citalopram 40 mg PO DAILY clonazepam 0.5 mg (1/2 x 1 mg) PO DAILY clotrimazole 1% 1 appl topical BID 2 weeks divalproex ER (Depakote ER) 1,000 mg (2 x 500 mg) PO .AT BEDTIME fluticasone propionate 50 mcg/actuation 1 spray intranasal BID gabapentin 300 mg PO BID lamotrigine 150 mg PO DAILY Tobacco use date assessed: 10/29/23 Dental Screening Dental Screen Date: 10/29/23 HPI HPI Comments History of Present Illness Details 39 y/o M with recurrent sinusitis, seaso nal allergies, bipolar 2, obesity, chronic upper back/neck pain, cannabis use Telehealth visit today to discuss sleep study results: CECILIA 4.1, OAI 1.3, LACHELLE 0, lowest desaturation is 87% SLEEP STUDY 04/17/2024 shows an AHI of 4 an oxygen yuni of 87%. The recommendation is to schedule the patient for an in-lab sleep study for a more detailed evaluation. Plan Pt is willing to undergo in lab sleep study Orders placed. I will f/u with him once results are back. This note is constructed using voice recognition software. While every effort has been made to ensure accuracy in sql server consultant, still errors may have been included Sometimes, these errors may affect the content or meaning of the given sentence . Total time spent caring for the patient today was 12 minutes. This includes time spent before the visit reviewing the chart, time spent during the visit, and time spent after the visit on documentation [facility] Medical History (Updated 04/28/24 @ 16:51 by SHELLY Flower) Headache Bipolar 2 disorder Depression Anxiety GERD (gastroesophageal reflux disease) Surgical History (Updated 10/29/23 @ 12:50 by Lea Waite CMA) No pertinent past surgical history Family History (Updated 10/29/23 @ 12:48 by Lea Waite CMA) Mother Bipolar 2 disorder Hypertension Other Mental health disorder Social History (Reviewed 02/24/24 @ 10:12 by RASHIDA Barnhart Household Members: Family Both parents involved: No Caregiver staying overnight: No Housing: House Housing Other:: With Brother Are you a primary wound care specialist to a significant other at home: No Do you presently have visiting nurse or other home services: No 75 years or older and lives alone: No Alcohol intake: never Patient Tobacco Use Status: Former Tobacco user Cigarette Packs Per Day: 0.5 Years Smoked: 10 e-Cigarette/Vaping Use: Currently Using Substance Use Type: Marijuana service: No Current occupational status: employed Current occupation: [employer] Current occupational exposures/hazards: No Sexual orientation: Straight/Heterosexual Gender identity: Male Cognitive needs: No Hearing needs: No Vision needs: Yes (wears glasses) Questionnaire Thrive Questionnaire Date Thrive assessed: 10/29/23 IDANIA-7 AMB Questionnaire IDANIA-7 Date IDANIA - 7 assessed: 10/29/23 Source: Developed by Drs. Shlomo Taylor, Sandra Reyes, David Monte and colleagues, with an educational nathaniel from [employer]. Physical exam (Primary Care) Tobacco/Smoking Status: Tobacco use Status Tobacco use date assessed 10/29/23 01/08/24 13:26 Patient Tobacco Use Status Former Tobacco user 01/08/24 13:26 Tobacco use type 12/03/23 10:54 e-Cigarette/Vaping Use Currently Using 01/08/24 13:26 Thrive Assessment: Date of Thrive Assessment Date Thrive assessed 10/29/23 01/08/24 13:26 Telehealth Telehealth Telehealth Platform: [facility] Location of provider rendering services: practice address Location of patient: address on file Patient Identification confirmed using: Name, : Yes Telehealth method: voice only Patient verbally consented to treatment: Yes Patient verbally consented to billing insurance company: Yes Patient informed of any privacy concerns related to visit: Yes Minutes spent on Phone/Video with Pt.: 5 Coding Level of Care Code Tele Est Pt Level 2 (31476) Complex EM visit Add On G2211 Diagnoses Sleep hypopnea G47.30 Snoring R06.83 Class 1 obesity with alveolar hypoventilation without serious comorbidity with body mass index (BMI) of 33.0 to 33.9 in adult E66.2; Z68.33 Serious obesity comorbidity presence: without serious comorbidity Assessment & Plan Assessment & Plan (1) Sleep hypopnea: Code(s): G47.30 - Sleep apnea, unspecified Category: Medical Plan: /. (2) Snoring: Code(s): R06.83 - Snoring Category: Medical Plan: . (3) Class 1 obesity with alveolar hypoventilation and body mass index (BMI) of 33.0 to 33.9 in adult: Code(s): E66.2 - Morbid (severe) obesity with alveolar hypoventilation; Z68.33 - Body mass index [BMI] 33.0-33.9, adult Category: Medical Qualifiers: Serious obesity comorbidity presence: without serious comorbidity Qualified Code(s): E66.2 - Morbid (severe) obesity with alveolar hypoventilation; Z68.33 - Body mass index [BMI] 33.0-33.9, adult Plan: . Plan . Orders: Orders RT PSG in-lab sleep study Today G47.30 - Sleep apnea, unspecified, R06.83 - Snoring
== END 2024-04-28 16:51 | disposition home or self-care (01) ==
LOC: HO.HMCFM 16:05
PROVIDERS: PCP Nurse Practitioner Family; Visit Provider Nurse Practitioner Family
DX: G47.30 Sleep apnea, unspecified (principal); E66.811 Obesity, class 1; Z68.33 Body mass index [BMI] 33.0-33.9, adult

== ENCOUNTER → 2024-04-28 16:05 | Outpatient (BNVA) | payer OTHER, SELFPAY | PROVIDERS: PCP Nurse Practitioner Family; Visit Provider Nurse Practitioner Family ==

== ENCOUNTER → 2024-06-03 20:30 | Outpatient (REF) | payer OTHER, SELFPAY | LOC: HO.SL 20:30 | PROVIDERS: PCP Nurse Practitioner Family; Visit Provider Nurse Practitioner Family | DX: R06.83 Snoring (principal); G47.30 Sleep apnea, unspecified | CPT/HCPCS: 95810 ==

== ENCOUNTER → 2024-06-03 21:15 | Outpatient (BNV) | payer OTHER, SELFPAY | PROVIDERS: PCP Nurse Practitioner Family; Visit Provider Psychiatry & Neurology Neurology | DX: G47.33 Obstructive sleep apnea (adult) (pediatric) (principal) | CPT/HCPCS: 95810 ==

== ENCOUNTER 2024-07-06 15:03 | Outpatient (REF) | payer OTHER, SELFPAY ==
[2024-07-07 12:52] LABS: Influenza A PCR NEGATIVE (Negative); Influenza B PCR NEGATIVE (Negative); Resp Syncy Virus RNA Qual PCR NEGATIVE (Negative); SARS COV2 PCR INHOUSE NEGATIVE (Negative)
== END 2024-07-06 15:04 | disposition home or self-care (01) ==
LOC: HO.LNP 15:03
PROVIDERS: PCP Nurse Practitioner Family; Visit Provider Nurse Practitioner Family
DX: R68.89 Other general symptoms and signs (principal)
CPT/HCPCS: 0241U

== ENCOUNTER 2024-07-06 15:03 | Outpatient (AMB) | payer OTHER, SELFPAY ==
--- NOTE | 2024-07-06 09:05 | A.OFFPC_ITS ---
Intake Visit Reasons: Sleep study results Allergies No Known Allergies Allergy (Verified 07/06/24 17:00) Medication List - Last Reconciled 07/06/24 by Mary Coleman [facility] bupropion HCl XL (Wellbutrin XL) 150 mg PO DAILY citalopram 40 mg PO DAILY clonazepam 0.5 mg (1/2 x 1 mg) PO DAILY clotrimazole 1% 1 appl topical BID 2 weeks divalproex ER (Depakote ER) 1,000 mg (2 x 500 mg) PO .AT BEDTIME fluticasone propionate 50 mcg/actuation 1 spray intranasal BID gabapentin 300 mg PO BID lamotrigine 150 mg PO DAILY Tobacco use date assessed: 07/06/24 Dental Screening Dental Screen Date: 07/06/24 Did you have a dental visit in the last 12 months?: Yes Did you have a dental problem in the last 6 months where you did not have access to dental care?: No Was dental information given to patient?: Patient has dentist HPI HPI Comments History of Present Illness Details 39 y/o M with recurrent sinusitis, seaso nal allergies, bipolar 2, obesity, chronic upper back/neck pain, cannabis use , severe PADMINI Specialists: Psychiatry Allergy & Immunology Health maintenance Tdap 10/2023 Televideo The patient is a 39-year-old male presenting with sinus infection symptoms. The patient reports feeling as if he has a recurring sinus infection, which started a few weeks ago. He initially had similar symptoms at a previous encounter. The symptoms include nasal congestion with crackling sounds in the nose, and a persistently stuffed ear. Nasal spray provided significant but temporary symptomatic relief. He denies fever but experiences fatigue, dizziness, and anxiety-like shakiness. The patient also reports recent severe headache episodes, leading to vomiting, which occurred at night and prevented him from working. The patient is also evaluated for obstructive sleep apnea, confirmed through a recent sleep study. The sleep study revealed severe obstructive sleep apnea. Details reviewed w him today. Review of Systems - Neurological: Reports severe headaches leading to vomiting, denies recurrent headaches after the episode. - General: Reports fatigue and shakiness , denies fever. - Psychiatric: Reports anxiety-like symp toms, notes medication use for anxiety. - Ear, Nose, Throat: Reports nasal conge stion and stuffiness, reports recurrent sinus symptoms. - Respiratory: Denies cough or shortness of breath. Plan - Conduct a flu swab to confirm influenz a diagnosis. - Await results before prescribing antiv iral therapy such as Oseltamivir Tamiflu) if influenza is confirmed. - If flu is not confirmed, assess the ma ed for starting antibiotics for sinusitis. - Schedule a CPAP titration study to det ermine precise pressure settings for severe obstructive sleep apnea and ensure effective therapy. - Ensure severe obstructive sleep apnea is addressed urgently to prevent associated risks such as cardiovascular disease. Patient was informed and verbally consented to the use of an ambient scribe for clinic note documentation during this visit. Discussion Notes I discussed the likelihood of the patient having influenza given the symptoms and possible exposure. I recommended coming to the clinic the next day for a flu swab, which will determine if antiviral medication is necessary. We discussed managing sinusitis symptoms with careful monitoring of antibiotic necessity pending flu confirmation. For the obstructive sleep apnea, I explained the severe nature of the condition and recommended an in-lab CPAP titration study for precise machine settings to mitigate health risks. I ensured the patient is aware of the risks of untreated sleep apnea such as heart disease and stroke. We also discussed the further diagnostic steps including a detailed pressure test in a lab setting at night to ensure proper management. Patient Instructions - Visit the clinic early tomorrow for a flu swab. - Follow the instructions given by the [facility] staff upon arrival. - Monitor symptoms closely; if the flu i s confirmed, we may start antiviral treatment. - Be prepared for a CPAP titration study to manage sleep apnea. - Schedule lab appointment promptly as i t is essential to controlling the condition. - Notify if symptoms worsen or do not im prove, especially if experiencing shortness of breath. - Maintain usual medication regimen for anxiety and any other prescriptions. This note is constructed using voice recognition software. While every effort has been made to ensure accuracy in data entry supervisor, still errors may have been included Sometimes, these errors may affect the content or meaning of the given sentence . Total time spent caring for the patient today was 20 minutes. This includes time spent before the visit reviewing the chart, time spent during the visit, and time spent after the visit on documentation [facility] Medical History (Updated 07/06/24 @ 17:08 by SHELLY Flower) Headache Bipolar 2 disorder Depression Anxiety GERD (gastroesophageal reflux disease) Surgical History (Updated 10/29/23 @ 12:50 by Lea Waite CMA) No pertinent past surgical history Family History (Updated 10/29/23 @ 12:48 by Lea Waite CMA) Mother Bipolar 2 disorder Hypertension Other Mental health disorder Social History Household Members: Family Both parents involved: No Caregiver staying overnight: No Housing: House Housing Other:: With Brother Are you a primary child daycare worker to a significant other at home: No Do you presently have visiting nurse or other home services: No 75 years or older and lives alone: No Alcohol intake: never Patient Tobacco Use Status: Former Tobacco user Cigarette Packs Per Day: 0.5 Years Smoked: 10 e-Cigarette/Vaping Use: Currently Using Substance Use Type: Marijuana service: No Current occupational status: employed Current occupation: [employer] Current occupational exposures/hazards: No Sexual orientation: Straight/Heterosexual Gender identity: Male Cognitive needs: No Hearing needs: No Vision needs: Yes (wears glasses) Questionnaire Thrive Questionnaire Date Thrive assessed: 10/29/23 IDANIA-7 AMB Questionnaire IDANIA-7 Date IDANIA - 7 assessed: 10/29/23 Source: Developed by Drs. Shlomo Taylor, Sandra Reyes, David Monte and colleagues, with an educational nathaniel from [employer]. Physical exam (Primary Care) Tobacco/Smoking Status: Tobacco use Status Tobacco use date assessed 10/29/23 07/06/24 09:09 Patient Tobacco Use Status Former Tobacco user 07/06/24 09:09 Tobacco use type 12/03/23 10:54 e-Cigarette/Vaping Use Currently Using 07/06/24 09:09 Thrive Assessment: Date of Thrive Assessment Date Thrive assessed 10/29/23 07/06/24 09:09 Telehealth Telehealth Telehealth Platform: [facility] Location of provider rendering services: practice address Location of patient: address on file Patient Identification confirmed using: Name, : Yes Telehealth method: video Patient verbally consented to treatment: Yes Patient verbally consented to billing insurance company: Yes Patient informed of any privacy concerns related to visit: Yes Minutes spent on Phone/Video with Pt.: 15 Coding Level of Care Code Tele Est Pt Level 3 (82363) Complex EM visit Add On G2211 Diagnoses Flu-like symptoms R68.89 PADMINI (obstructive sleep apnea) G47.33 Assessment & Plan Assessment & Plan (1) Flu-like symptoms: Code(s): R68.89 - Other general symptoms and signs Category: Medical (2) PADMINI (obstructive sleep apnea): Code(s): G47.33 - Obstructive sleep apnea (adult) (pediatric) Category: Medical Plan . Orders: Orders SARS-CoV2/FLU/RSV 07/07/24 R68.89 - Other general symptoms and signs RT PSG in-lab sleep titration Today G47.33 - Obstructive sleep apnea (adult) (pediatric)
== END 2024-07-06 17:46 | disposition home or self-care (01) ==
LOC: HO.HMCFM 15:03
PROVIDERS: PCP Nurse Practitioner Family; Visit Provider Nurse Practitioner Family
DX: G47.33 Obstructive sleep apnea (adult) (pediatric) (principal); R68.89 Other general symptoms and signs

== ENCOUNTER → 2024-07-24 20:30 | Outpatient (REF) | payer OTHER, SELFPAY | LOC: HO.SL 20:30 | PROVIDERS: PCP Nurse Practitioner Family; Visit Provider Nurse Practitioner Family | DX: G47.33 Obstructive sleep apnea (adult) (pediatric) (principal) | CPT/HCPCS: 95811 ==

== ENCOUNTER → 2024-07-24 21:14 | Outpatient (BNV) | payer OTHER, SELFPAY | PROVIDERS: PCP Nurse Practitioner Family; Visit Provider Internal Medicine | DX: G47.33 Obstructive sleep apnea (adult) (pediatric) (principal) | CPT/HCPCS: 95811 ==

== ENCOUNTER 2024-07-29 13:31 | Outpatient (AMB) | payer OTHER, SELFPAY ==
--- NOTE | 2024-07-29 15:20 | A.OFFPC_ITS ---
Intake Visit Reasons: telehealth sleep study fu Allergies No Known Allergies Allergy (Verified 07/29/24 15:21) Medication List - Last Reconciled 07/29/[address] [facility] bupropion HCl XL (Wellbutrin XL) 150 mg PO DAILY citalopram 40 mg PO DAILY clonazepam 0.5 mg (1/2 x 1 mg) PO DAILY clotrimazole 1% 1 appl topical BID 2 weeks divalproex ER (Depakote ER) 1,000 mg (2 x 500 mg) PO .AT BEDTIME fluticasone propionate 50 mcg/actuation 1 spray intranasal BID gabapentin 300 mg PO BID lamotrigine 150 mg PO DAILY Tobacco use date assessed: 07/06/24 Dental Screening Dental Screen Date: 07/06/24 Did you have a dental visit in the last 12 months?: Yes Did you have a dental problem in the last 6 months where you did not have access to dental care?: No Was dental information given to patient?: Patient has dentist HPI HPI Comments 2 History of Present Illness0 Details 39 y/o M with recurrent sinusitis, seaso nal allergies, bipolar 2, obesity, chronic upper back/neck pain, cannabis use , severe PADMINI Specialists: Psychiatry Allergy & Immunology Pul Health maintenance Td 10/2023 Telehealth visit today to review the results of his CPAP titration study. This was reviewed with him in detail. The plan will be to proceed with a CPAP with the recommended settings. [facility]. The patient is aware that he needs to be compliant with the CPAP. He is aware that the compliance will be monitored. He is willing and accepting. The next step will be to fax the orders overall [facility]. Asked the patient to follow up with me via the portal should there be any delay. I will have the office reach out to him to set up a routine compliance test in 60-90 days. Total time spent caring for the patient today was 25 minutes. This includes time spent before the visit reviewing the chart, time spent during the visit, and time spent after the visit on documentation, reviewing laboratory results, diagnostic imaging, medications, performing a medically necessary evaluation, counseling on diagnoses, care coordination, ordering appropriate tests, ordering appropriate medications, review of tests performed by other providers, reporting test results with the patient, communication with other healthcare providers. [facility] Medical History (Updated 07/29/24 @ 15:[address] [facility]) Anxiety Bipolar 2 disorder Depression GERD (gastroesophageal reflux disease) Headache Surgical History (Updated 10/29/23 @ 12:50 by Lea Waite CMA) No pertinent past surgical history Family History (Updated 10/29/23 @ 12:48 by Lea Waite CMA) Mother Bipolar 2 disorder Hypertension Other Mental health disorder Social History Household Members: Family Both parents involved: No Caregiver staying overnight: No Housing: House Housing Other:: With Brother Are you a primary healthcare analyst to a significant other at home: No Do you presently have visiting nurse or other home services: No 75 years or older and lives alone: No Alcohol intake: never Patient Tobacco Use Status: Former Tobacco user Cigarette Packs Per Day: 0.5 Years Smoked: 10 Packs Per Year: 5 e-Cigarette/Vaping Use: Currently Using Substance Use Type: Marijuana service: No Current occupational status: employed Current occupation: [employer] Current occupational exposures/hazards: No Sexual orientation: Straight/Heterosexual Gender identity: Male Cognitive needs: No Hearing needs: No Vision needs: Yes (wears glasses) Questionnaire Thrive Questionnaire Date Thrive assessed: 10/29/23 IDANIA-7 AMB Questionnaire IDANIA-7 Date IDANIA - 7 assessed: 10/29/23 Source: Developed by Drs. Shlomo Taylor, Sandra Reyes, David Monte and colleagues, with an educational nathaniel from [employer]. Physical exam (Primary Care) Tobacco/Smoking Status: Tobacco use Status Tobacco use date assessed 07/06/24 07/29/24 15:21 Patient Tobacco Use Status Former Tobacco user 07/29/24 15:21 Tobacco use type 12/03/23 10:54 e-Cigarette/Vaping Use Currently Using 07/29/24 15:21 Thrive Assessment: Date of Thrive Assessment Date Thrive assessed 10/29/23 07/29/24 15:21 Telehealth Telehealth Telehealth Platform: [facility] Location of provider rendering services: practice address Location of patient: address on file Patient Identification confirmed using: Name, : Yes Telehealth method: voice only Patient verbally consented to treatment: Yes Patient verbally consented to billing insurance company: Yes Patient informed of any privacy concerns related to visit: Yes Minutes spent on Phone/Video with Pt.: 15 Coding Level of Care Code Tele Est Pt Level 3 (44916) Complex EM visit Add On G2211 Diagnoses PADMINI (obstructive sleep apnea) G47.33 Assessment & Plan Assessment & Plan (1) PADMINI (obstructive sleep apnea): Comment: sleep study + severe PADMINI 03/2024 titration study 06/2024 Full face mask, air touch f20 size large with pressure of 13cm and heated humidification wt reduction compliance monitoring Code(s): G47.33 - Obstructive sleep apnea (adult) (pediatric) Category: Medical Plan .
== END 2024-07-29 17:05 | disposition home or self-care (01) ==
LOC: HO.HMCFM 13:31
PROVIDERS: PCP Nurse Practitioner Family; Visit Provider Nurse Practitioner Family
DX: G47.33 Obstructive sleep apnea (adult) (pediatric) (principal)

== ENCOUNTER 2024-11-02 14:20 | Outpatient (AMB) | payer OTHER, SELFPAY ==
--- NOTE | 2024-11-02 16:51 | MHC.PC.OV ---
Intake Visit Reasons: f/u CPAP options [employer] - [phone] Allergies No Known Allergies Allergy (Verified 11/02/24 16:54) Medication List - Last Reconciled 11/02/24 by CARLOS Flower- bupropion HCl XL (Wellbutrin XL) 150 mg PO DAILY citalopram 40 mg PO DAILY clonazepam 0.5 mg (1/2 x 1 mg) PO DAILY clotrimazole 1% 1 appl topical BID 2 weeks divalproex ER (Depakote ER) 1,000 mg (2 x 500 mg) PO .AT BEDTIME fluticasone propionate 50 mcg/actuation 1 spray intranasal BID gabapentin 300 mg PO BID lamotrigine 150 mg PO DAILY Tobacco use date assessed: 07/06/24 Dental Screening Dental Screen Date: 07/06/24 HPI HPI Comments History of Present Illness Details History of Present Illness - The patient is a 39-year-old male presenting with concerns over the denial of coverage for a CPAP device necessary for managing severe obstructive sleep apnea. - Past medical records indicate severe obstructive sleep apnea diagnosed via an initial sleep study on July 04, 2024, necessitating CPAP therapy. - A misunderstanding arose from a titration study indicating resolution of apnea with CPAP usage, leading to insurance coverage denial. - I called [facility] at the time of my call w/ the patient, spoke to Jack Hodges, who states Illegible documentation provided to the home care service delayed resolution and processing of the CPAP order. - [facility] service was unable to properly assess the need for CPAP due to blurry faxed documents and communication issues. Recommended I email him the initial sleep study, not the titration study, and he would expedite the processing of this. Assessment and Plan 1. Severe Obstructive Sleep Apnea (PADMINI) The critical focus is on obtaining a CPAP device to manage severe obstructive sleep apnea. It was determined that previous attempts were hindered by documentation issues. A corrected initial sleep study will be faxed to avoid coverage confusion, and communication with Jack Hodges at [facility] is essential for resolving the denial. Follow-up is necessary to ensure processing completion. [facility] [email or web address] Secure email sent. Telehealth Attestation The encounter was conducted via telehealth, ensuring accurate documentation of the patient's medical issues and communication with relevant parties. The patient has been explained that this is an interactive (audio/video) telehealth encounter and what that consists of. The patient understands and wishes to proceed. [employer] platform was used. Total time spent caring for the patient today was 31 minutes. This includes time spent before the visit reviewing the chart, time spent during the visit, and time spent after the visit on documentation, reviewing laboratory results, diagnostic imaging, medications, performing a medically necessary evaluation, counseling on diagnoses, care coordination, ordering appropriate tests, ordering appropriate medications, review of tests performed by other providers, reporting test results with the patient, communication with other healthcare providers. Initial Sleep Study Showing SEVERE PADMINI Titration Study then performed: COUNT INCLUDES THE [facility] Medical History (Updated 11/02/24 @ 17:15 by Mary Coleman [facility]) Anxiety Bipolar 2 disorder Depression GERD (gastroesophageal reflux disease) Headache Surgical History (Updated 10/29/23 @ 12:50 by Lea Waite [facility]) No pertinent past surgical history Family History (Updated 10/29/23 @ 12:48 by Lea Waite [facility]) Mother Bipolar 2 disorder Hypertension Other Mental health disorder Social History Household Members: Family Both parents involved: No Caregiver staying overnight: No Housing: House Housing Other:: With Brother Are you a primary care management coordinator to a significant other at home: No Do you presently have visiting nurse or other home services: No 75 years or older and lives alone: No Alcohol intake: never Patient Tobacco Use Status: Former Tobacco user Cigarette Packs Per Day: 0.5 Years Smoked: 10 e-Cigarette/Vaping Use: Currently Using Substance Use Type: Marijuana service: No Current occupational status: employed Current occupation: [employer] [place] Current occupational exposures/hazards: No Sexual orientation: Straight/Heterosexual Gender identity: Male Cognitive needs: No Hearing needs: No Vision needs: Yes (wears glasses) Questionnaire Thrive Questionnaire Date Thrive assessed: 10/29/23 IDANIA-7 AMB Questionnaire IDANIA-7 Date IDANIA - 7 assessed: 10/29/23 Source: Developed by Drs. Shlomo Taylor, Sandra Reyes, David Monte and colleagues, with an educational nathaniel from [employer]. Physical exam (Primary Care) Tobacco/Smoking Status: Tobacco use Status Tobacco use date assessed 07/06/24 07/29/24 15:21 Patient Tobacco Use Status Former Tobacco user 07/29/24 15:21 Tobacco use type 12/03/23 10:54 e-Cigarette/Vaping Use Currently Using 07/29/24 15:21 Thrive Assessment: Date of Thrive Assessment Date Thrive assessed 10/29/23 07/29/24 15:21 Telehealth Telehealth Telehealth Platform: [employer] Location of provider rendering services: practice address Location of patient: address on file Patient Identification confirmed using: Name, : Yes Telehealth method: voice only Patient verbally consented to treatment: Yes Patient verbally consented to billing insurance company: Yes Patient informed of any privacy concerns related to visit: Yes Minutes spent on Phone/Video with Pt.: 20 Coding Level of Care Code Tele Est Pt Level 4 (19139) Complex EM visit Add On G2211 Diagnoses PADMINI (obstructive sleep apnea) G47.33 Assessment & Plan Assessment & Plan (1) PADMINI (obstructive sleep apnea): Comment: sleep study + severe PADMINI 06/2024 titration study 06/2024 Full face mask, air touch f20 size large with pressure of 13cm and heated humidification wt reduction compliance monitoring Code(s): G47.33 - Obstructive sleep apnea (adult) (pediatric) Category: Medical Plan .
== END 2024-11-02 17:36 | disposition home or self-care (01) ==
LOC: HO.HMCFM 14:20
PROVIDERS: PCP Nurse Practitioner Family; Visit Provider Nurse Practitioner Family
DX: G47.33 Obstructive sleep apnea (adult) (pediatric) (principal)

== ENCOUNTER → 2024-11-02 14:20 | Outpatient (BNVA) | payer OTHER, SELFPAY | PROVIDERS: PCP Nurse Practitioner Family; Visit Provider Nurse Practitioner Family | DX: Z13.89 Encounter for screening for other disorder (principal) ==

== ENCOUNTER 2025-06-07 12:27 | Outpatient (AMB) | payer OTHER, SELFPAY ==
--- NOTE | 2025-06-07 12:30 | MHC.PC.OV ---
Vital Signs 06/07/25 12:33 Height 5 ft 10 in Weight 247 lb 6 oz BMI 35.5 BP 132/70 Blood Pressure Location Lt brachial Position Sitting Respiration 12 Pulse 76 Pulse Source Pulse Oximeter Temp 97.8 F Temp Source Oral Pulse Oximetry (%) 96 Oxygen Delivery Method Room Air Intake Visit Reasons: CPAP follow up Intake Note: Follow up on cpap. 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[employer] Required: No Allergies No Known Allergies Allergy (Verified 06/07/25 12:43) Medication List - Last Reconciled 06/07/25 by MANUEL FlowerP- bupropion HCl XL (Wellbutrin XL) 150 mg PO DAILY citalopram 40 mg PO DAILY clonazepam 0.5 mg (1/2 x 1 mg) PO DAILY clotrimazole 1% 1 appl topical BID 2 weeks divalproex ER (Depakote ER) 1,000 mg (2 x 500 mg) PO .AT BEDTIME fluticasone propionate 50 mcg/actuation 1 spray intranasal BID gabapentin 300 mg PO BID lamotrigine 150 mg PO DAILY Tobacco use date assessed: 06/07/25 Dental Screening Dental Screen Date: 06/07/25 Did you have a dental visit in the last 12 months?: Yes Did you have a dental problem in the last 6 months where you did not have access to dental care?: No Was dental information given to patient?: Patient has dentist HPI HPI Comments History of Present Illness Details 40 y/o M with recurrent sinusitis, seasonal allergies, bipolar 2, obesity, chronic upper back/neck pain, cannabis use , severe PADMINI on CPAP Surgery: No changes Fhx: No changes Social: lives w/ Mom; laid off Specialists: Psychiatry Allergy & Immunology Pulm Optho wears glasses last exam several years ago, will reschedule Health maintenance Tdap 10/2023 Flu declined 06/07/25 History of Present Illness The patient is a 40-year-old male presenting for a complete physical examination. Obstructive Sleep Apnea: - The patient has a history of obstructive sleep apnea and has been prescribed CPAP therapy. - He reports poor compliance with the CPAP machine and expresses that a persistent mask leak is the primary issue. - He has tried to get help over the phone and eventually went in for a different size mask, but the problem persists. - A compliance report from the last 90 days showed he used the machine on 19 of the 90 days, with usage over four hours on 15 of those days, resulting in a 21% compliance rate. - The patient also notes issues with the humidification setting, stating that all the water in the machine is gone by the morning. Bipolar Disorder: - The patient has a history of bipolar disorder managed by an outside prescriber. - His medications include gabapentin, lamotrigine, Depakote, clonazepam, bupropion, and citalopram. - He requires a Depakote level check for his psychiatrist next month. Obesity: - The patient has a history of obesity with a BMI of 35.5. - He reports walking a lot every day since he stopped working. Urinary Urgency: - The patient reports experiencing urinary urgency, though not every day. Fissured Heels: - The patient reports having issues with cracked heels, which he has had for some time. - He has been applying Aquaphor in the morning and at night for about a month, which he feels has provided some improvement. 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 - He is currently not working and is laying low for now. - Exercise: He walks a lot every day. Health Maintenance - The patient declined a flu shot today. - Laboratory tests, including a cholesterol panel, were ordered to be done today. - The patient needs an eye exam but had a previously scheduled appointment canceled by the doctor's office. Review of Systems - Respiratory: Reports breathing has been better. He continues to use a nasal spray. - Genitourinary: Reports intermittent urinary urgency. - Musculoskeletal: Reports some foot issues now that he is walking more. - Integumentary: Reports cracked heels. Physical Exam General: Well developed, well nourished, in no acute distress. Appears stated age. BMI is 35.5, indicating obesity. Head: Normocephalic, atraumatic. Eyes: Pupils are equal, round and reactive to light and accommodation. Conjunctivae are clear. Scleras nonicteric bilat. Vision grossly normal. Ears: TMs clear AU, EACS WNL Nose: Patent, without discharge. Using nasal spray for nasal issues. Neck: No carotid bruit bilat. Supple, no adenopathy or thyromegaly. Breast: Edu on SBE Lungs: Clear to auscultation bilaterally. No rales, rhonchi or wheeze noted. Good air flow in all mcmillan. Heart: Regular rate and rhythm. No murmurs, click, rubs or gallops are noted. Abdomen: Bowel sounds present in all quadrants. The abdomen is soft, nontender, with no masses or organomegaly noted. No hernias are noted. : Deferred. Reviewed CHRIS & recommendations Pulses: Peripheral pulses are equal and palpable bilaterally. Extremities: No clubbing, cyanosis nor edema is noted. Patient reports issues with feet, including calluses and discomfort when walking. Neurologic: Gait and station normal. Cranial Nerves 2-12 intact. Motor strength grossly symmetrical and intact. No sensory loss. Balance normal. Skin: No rashes, ulcers, or lesions noted. Turgor is good. Skin color is good. Hair and nails are without abnormalities. Fissures to bilat heels Psych: Normal eye contact, affect and mood appropriate, and normal interactions. Patient is alert and appropriate to context. Results - CPAP Compliance Report (last 90 days): Usage was 19 out of 90 days (21% compliance), with 15 days of use for more than 4 hours. Medical Decision Making The patient, a 40-year-old male, presented for a complete physical examination. His primary issues are poor compliance with CPAP for obstructive sleep apnea due to mask leak and humidity issues, which need to be addressed with the [employer] to optimize therapy and prevent the insurance from recalling the machine. A follow-up compliance check is scheduled in 90 days. We will obtain labs today, including a lipid panel, to assess his cardiovascular risk factors. He also reports urinary urgency, so a urinalysis will be performed to rule out infection. If the urinalysis is normal and symptoms persist, a referral to urology will be placed. He should continue his psychiatric and allergy medications as prescribed. His fissured heels are being managed with Aquaphor, which he will continue. Plan 1. Obstructive Sleep Apnea - The patient's CPAP compliance is low at 21% over the last 90 days, primarily due to mask leakage and issues with humidification. - He was instructed to follow up with the CPAP supply company to resolve these technical issues to optimize therapy. - The patient was made aware that insurance requires 70% compliance and that the machine could be taken back if usage does not improve. Patient made aware for continued coverage of CPAP therapy, documentation of compliance, including a [id number] re-evaluation by the treating physician and objective evidence of adherence (4 hours per night for 70% of nights in a 30-day period), is?required between the and day of therapy.? The patient is in agreement to start CPAP therapy. My office will coordinate a f/u in about 60 days. - A follow-up visit is scheduled in about 90 days to review another compliance report. 2. Bipolar Disorder - The patient will continue his current medications as managed by his outside prescriber. - He needs to have his Depakote level checked before his next appointment with his psychiatrist next month. 3. Wellness Check - Lab work, including cholesterol levels, was ordered for today to update his health status. - The patient was encouraged to schedule a follow-up eye exam. - The patient declined a flu shot at this visit. 4. Urinary Urgency - To investigate the patient's report of urinary urgency, a urinalysis was ordered to rule out an infection. - If the urinalysis results are normal and his symptoms persist, a referral to a urologist will be provided for further evaluation. 5. Fissured Heels - The patient was advised to continue using Aquaphor, or Vit D or Bag Pettibone, to manage the fissured skin on his heels. Patient Instructions - Please follow up with your CPAP supplier to fix the problems you are having with your mask leaking and the humidifier settings. It is important to use the machine correctly so the treatment can be successful. - Your insurance company is monitoring your CPAP use and wants to see that you are using it at least 70% of the time. We will check your usage again in about 3 months. - Please get the lab work and urine test done today. I will send you the results through the patient portal. - If your urine test is normal, I will give you a referral to a urologist (a specialist for urinary problems). - Continue taking your medications for allergies and for your psychiatric condition as prescribed. - Continue to use Aquaphor on your feet. - We will plan to see you again in about 3 months for cPAP compliance, sooner PRN Consent Patient was informed and verbally consented to the use of an ambient scribe for clinic note documentation during this visit. An additional 20 minutes was spent addressing the problem(s) noted at todays visit. This includes time spent before the visit reviewing the chart, time spent during the visit, and time spent after the visit on documentation reviewing laboratory results, diagnostic imaging, medications, performing a medically necessary evaluation, counseling on diagnoses, care coordination, ordering appropriate tests, ordering appropriate medications, review of tests performed by other providers, reporting test results with the patient, communication with other healthcare providers. [facility] Medical History (Updated 06/07/25 @ 14:49 by [facility] Anxiety Bipolar 2 disorder Depression GERD (gastroesophageal reflux disease) Headache Surgical History (Updated 10/29/23 @ 12:50 by Lea Waite [facility]) No pertinent past surgical history Family History (Updated 10/29/23 @ 12:48 by Lea Waite CMA) Mother Bipolar 2 disorder Hypertension Other Mental health disorder Social History Household Members: Family Both parents involved: No Caregiver staying overnight: No Housing: House Housing Other:: With Brother Are you a primary critical care unit manager to a significant other at home: No Do you presently have visiting nurse or other home services: No 75 years or older and lives alone: No Alcohol intake: never Patient Tobacco Use Status: Former Tobacco user Cigarette Packs Per Day: 0.5 Years Smoked: 10 e-Cigarette/Vaping Use: Currently Using Second Hand Smoke Exposure: No Substance Use Type: Marijuana service: No Current occupational status: employed Current occupation: [employer] Current occupational exposures/hazards: No Sexual orientation: Straight/Heterosexual Gender identity: Male Cognitive needs: No Hearing needs: No Vision needs: Yes (wears glasses) Questionnaire PHQ-9 Over the last 2 weeks, how often have you been bothered by any of the following problems? 1. Little interest or pleasure in doing things: several days 2. Feeling down, depressed, or hopeless: more than half the days 3. Trouble falling or staying asleep, or sleeping too much: not at all 4. Feeling tired or having little energy: not at all 5. Poor appetite or overeating: not at all 6. Feeling bad about yourself - or that you are a failure or have let yourself or your family down: not at all 7. Trouble concentrating on things, such as reading the newspaper or watching television: not at all 8. Moving or speaking so slowly that other people could have noticed. Or the opposite - being so fidgety or restless that you have been moving around a lot more than usual: not at all 9. Thoughts that you would be better off or of hurting yourself in some way: not at all Total score: 3 Depression Screening Interpretation: Negative Depression Screening Done: Yes 34537 - PHQ-9 Billing: Yes Source: Developed by Drs. Shlomo Taylor, Sandra Reyes, David Monte and colleagues, with an educational nathaniel from [employer] Thrive Questionnaire Date Thrive assessed: 06/07/25 I am a: Patient What is your living situation today?: I have a steady place to live Within the past 12 months, did the food you bought not last and you didn't have the money to get more?: Sometimes True Within the past 12 months, did you worry whether your food would run out before you got money to buy more?: I choose not to answer this question Do you have trouble paying for medicines?: I choose not to answer this question Do you have trouble getting transportation to medical appointments?: I choose not to answer this question Do you have trouble paying your heating and electricity bill?: I choose not to answer this question Do you have trouble taking care of your child, family member or friend?: I choose not to answer this question Do you have trouble with day-to-day activities such as bathing, preparing meals, shopping, managing finances, etc.?: I choose not to answer this question Are you currently unemployed and looking for a job?: I choose not to answer this question Are you interested in more education?: I choose not to answer this question Please select the resources that you would like help with: None Currently or been in a relationship where the following occur: I choose not to answer THRIVE Score: 1 AUDIT C Alcohol Use Questionnaire (AUDIT-C) 1. How often do you have a drink containing alcohol?: Never 3. How often do you have six or more drinks on one occasion?: Never Total Score: 0 Score Reviewed/Action Taken: Yes IDANIA-7 AMB Questionnaire IDANIA-7 Date IDANIA - 7 assessed: 06/07/25 Feeling nervous, anxious, or on edge: 1 = Several days Not being able to stop or control worryin = Several days Worrying too much about different things: 1 = Several days Trouble relaxin = Several days Being so restless that it is hard to sit still: 1 = Several days Becoming easily annoyed or irritable: 2 = More than half the days Feeling afraid as if something awful might happen: 2 = More than half the days Total IDANIA-7 score (0-4 normal; 5-9 mild; 10-14 moderate; 15-21 severe): 9 Source: Developed by Drs. Shlomo Taylor, Sandra Reyes, David Monte and colleagues, with an educational nathaniel from [employer] IDANIA-7 Assessment Billing IDANIA-7 Assessment Tool: IDANIA-7 Assessment 60946 Physical exam (Primary Care) Vital Signs: Last Vital Signs Temp 97.8 F 06/07/25 12:33 Pulse 76 06/07/25 12:33 Resp 12 06/07/25 12:33 BP 132/70 06/07/25 12:33 Pulse Ox 96 06/07/25 12:33 Oxygen Delivery Method Room Air 06/07/25 12:33 BMI result Body Mass Index 35.5 BMI Assessment/Plan discussion: High BMI High, discussed plan: lifestyle Tobacco/Smoking Status: Tobacco use Status Tobacco use date assessed 06/07/25 06/07/25 12:35 Patient Tobacco Use Status Former Tobacco user 06/07/25 12:35 Tobacco use type 12/03/23 10:54 e-Cigarette/Vaping Use Currently Using 06/07/25 12:35 PHQ-9: PHQ-9 Score PHQ-9: Total score 3 06/07/25 13:16 Depression Screening Interpretation: Negative Thrive Assessment: Date of Thrive Assessment Date Thrive assessed 06/07/25 06/07/25 12:35 Currently or been in a relationship where the following occur: I choose not to answer Results Reviewed Results Reviewed: Coding Level of Care Code Est Pt Level 3 (50500) Est Pt Prev Care 18-39y(33065) Diagnoses Adult general medical exam Z00.00 PADMINI (obstructive sleep apnea) G47.33 Influenza vaccination declined Z28.21 Laboratory exam ordered as part of routine general medical examination Z00.00 Moderate mixed hyperlipidemia not requiring statin therapy E78.2 Hyperlipidemia type: moderate mixed hyperlipidemia not requiring statin therapy Urinary frequency R35.0 Bipolar 2 disorder F31.81 Obesity (BMI 30-39.9) E66.9 Seasonal allergies J30.2 Additional Codes IDANIA-7 Assessment Billing - IDANIA-7 Assessment Tool: IDANIA-7 Assessment 92202 ([id number]) PHQ-9 - 40486 - PHQ-9 Billing: Yes ([id number]) Assessment & Plan Assessment & Plan (1) Adult general medical exam: Onset Date: ~06/07/25 Code(s): Z00.00 - Encounter for general adult medical examination without abnormal findings Category: Medical (2) PADMINI (obstructive sleep apnea): Comment: sleep study + severe PADMINI 06/2024 titration study 06/2024 Full face mask, air touch f20 size large with pressure of 13cm and heated humidification wt reduction compliance monitoring done 06/07/25 noncompliant, revisit in 90 days as he is motivated Patient made aware for continued coverage of CPAP therapy, documentation of compliance, including a [id number] re-evaluation by the treating physician and objective evidence of adherence (4 hours per night for 70% of nights in a 30-day period), is?required between the 31st and 90th day of therapy.? Code(s): G47.33 - Obstructive sleep apnea (adult) (pediatric) Category: Medical (3) Influenza vaccination declined: Onset Date: ~06/07/25 Code(s): Z28.21 - Immunization not carried out because of patient refusal Category: Medical (4) Laboratory exam ordered as part of routine general medical examination: Code(s): Z00.00 - Encounter for general adult medical examination without abnormal findings Category: Medical (5) Hyperlipidemia: Code(s): E78.5 - Hyperlipidemia, unspecified Category: Medical Qualifiers: Hyperlipidemia type: moderate mixed hyperlipidemia not requiring statin therapy Qualified Code(s): E78.2 - Mixed hyperlipidemia (6) Urinary frequency: Code(s): R35.0 - Frequency of micturition Category: Medical (7) Bipolar 2 disorder: Comment: Active with counselor and psychiatrist. Continue care and medications Code(s): F31.81 - Bipolar II disorder Category: Medical (8) Obesity (BMI 30-39.9): Code(s): E66.9 - Obesity, unspecified Category: Medical (9) Seasonal allergies: Code(s): J30.2 - Other seasonal allergic rhinitis Category: Medical Plan . Orders: Orders Comprehensive Met. Panel Today E78.5 - Hyperlipidemia, unspecified, Z00.00 - Encounter for general adult medical examination without abnormal findings TSH reflex Free T4 Today E78.5 - Hyperlipidemia, unspecified, Z00.00 - Encounter for general adult medical examination without abnormal findings Vitamin D 25-OH Total Today E78.5 - Hyperlipidemia, unspecified, Z00.00 - Encounter for general adult medical examination without abnormal findings CT NG by PCR Urine Today R35.0 - Frequency of micturition UA CC w/rflx Micro + Cult Today R35.0 - Frequency of micturition Complete Blood Count no Diff Today E78.5 - Hyperlipidemia, unspecified, Z00.00 - Encounter for general adult medical examination without abnormal findings Hemoglobin A1c Today E78.5 - Hyperlipidemia, unspecified, Z00.00 - Encounter for general adult medical examination without abnormal findings Lipid Panel Today E78.5 - Hyperlipidemia, unspecified, Z00.00 - Encounter for general adult medical examination without abnormal findings Microalbumin, Random (w Creat) Today E78.5 - Hyperlipidemia, unspecified, Z00.00 - Encounter for general adult medical examination without abnormal findings Vitamin B12 and Folate Today E78.5 - Hyperlipidemia, unspecified, Z00.00 - Encounter for general adult medical examination without abnormal findings Medications: Discontinued clotrimazole 1% Discontinued Reason: Patient Completed Course 1 appl topical BID 2 weeks 45 grams 2RF Patient Instructions: Health screenings for men You should visit your health care provider regularly, even if you feel healthy. The purpose of these visits is to: Screen for medical issues Assess your risk for future medical problems Encourage a healthy lifestyle Update vaccinations and other preventive care services Help you get to know your provider in case of an illness Information Even if you feel fine, you should still see your provider for regular checkups. These visits can help you avoid problems in the future. For example, the only way to find out if you have high blood pressure is to have it checked regularly. High blood sugar and high cholesterol level also may not have any symptoms in the early stages. Simple blood tests can check for these conditions. There are specific times when you should see your provider or receive specific health screenings. The [place] Preventive Services Task Force publishes a list of recommended screenings. Below are screening guidelines for men ages 40 to 64. BLOOD PRESSURE SCREENING Have your blood pressure checked at least once every year. Watch for blood pressure screenings in your area. Ask your provider if you can stop in to have your blood pressure checked. Ask your provider if you need your blood pressure checked more often if: You have diabetes, heart disease, kidney problems, or are overweight or have certain other health conditions You have a first-degree relative with high blood pressure You are Black Your blood pressure top number is from 120 to 129 mm Hg, or the bottom number is from 70 to 79 mm Hg If the top number is 130 mm Hg or greater or the bottom number is 80 mm Hg or greater, this is considered stage 1 hypertension. Schedule an appointment with your provider to learn how you can lower your blood pressure. Effects of age on blood pressure CHOLESTEROL SCREENING Cholesterol screening should begin at age 35 for men with no known risk factors for coronary heart disease. Repeat cholesterol screening should take place: Every 5 years for men with normal cholesterol levels More often if changes occur in lifestyle (including weight gain and diet) More often if you have diabetes, heart disease, kidney problems, or certain other conditions COLORECTAL CANCER SCREENING If you are under age 45, talk to your provider about getting screened. You may need to be screened if you have a strong family history of colon cancer or polyps. Screening may also be considered if you have risk factors such as a history of inflammatory bowel disease or polyps. If you are age 45 to 75, you should be screened for colorectal cancer. There are several screening tests available: A stool-based fecal occult blood (gFOBT) or fecal immunochemical test (FIT) every year A stool sDNA test every 1 to 3 years Flexible sigmoidoscopy every 5 years or every 10 years with stool testing FIT done every year CT colonography (virtual colonoscopy) every 5 years Colonoscopy every 10 years You may need a colonoscopy more often if you have risk factors for colorectal cancer, such as: Ulcerative colitis A personal or family history of colorectal cancer A history of growths in your colon called adenomatous polyps DENTAL EXAM Go to the dentist once or twice every year for an exam and cleaning. Your dentist will evaluate if you have a need for more frequent visits. DIABETES SCREENING All adults who do not have risk factors for diabetes should be screened starting at age 35 and repeated every 3 years. If you have other risk factors for diabetes, such as a first degree relative with diabetes, overweight or obesity, high blood pressure, prediabetes, or a history of heart disease, you may be tested more often. If you are overweight and have other risk factors, such as high blood pressure and are planning to become , screening is recommended. EYE EXAM Have an eye exam every 2 to 4 years ages 40 to 54 and every 1 to 3 years ages 55 to 64. Your provider may recommend more frequent eye exams if you have vision problems or glaucoma risk. Have an eye exam that includes an examination of your retina (back of your eye) at least every year if you have diabetes. IMMUNIZATIONS Commonly needed vaccines include: Flu shot: get one every year COVID-19 vaccine: ask your provider what is best for you Tetanus-diphtheria and acellular pertussis (Tdap) vaccine: have as one of your tetanus-diphtheria vaccines if you did not receive it as an adolescent Tetanus-diphtheria: have a booster (or Tdap) every 10 years Varicella vaccine: receive 2 doses if you never had chickenpox or the varicella vaccine and were born in 1979 or after Hepatitis B vaccine: receive 2, 3, or 4 doses, depending on your exact circumstances, if you did not receive these as a child or adolescent, until age 59 Shingles (herpes zoster) vaccine: at or after age 50 Ask your provider if you should receive other immunizations, especially if you have certain medical conditions, such as diabetes or are at increased risk for some diseases such as pneumonia. INFECTIOUS DISEASE SCREENING Screening for hepatitis C: all adults ages 18 to 79 should get a one-time test for hepatitis C. Screening for human immunodeficiency virus (HIV): all people ages 15 to 65 should get a one-time test for HIV. Depending on your lifestyle and medical history, you may need to be screened for infections such as syphilis, chlamydia, and other infections. LUNG CANCER SCREENING You should have an annual screening for lung cancer with low-dose computed tomography (LDCT) if: You are age 50 to 80 years AND You have a 20 pack-year smoking history AND You currently smoke or have quit within the past 15 years OSTEOPOROSIS SCREENING If you are age 50 to 64 and have risk factors for osteoporosis, you should discuss screening with your provider. Risk factors can include long-term steroid use, low body weight, smoking, heavy alcohol use, having a fracture after age 50, or a family history of hip fracture or osteoporosis. Osteoporosis PHYSICAL EXAM All adults should visit their provider from time to time, even if they are healthy. The purpose of these visits is to: Screen for diseases Assess risk of future medical problems Encourage a healthy lifestyle Update vaccinations and other preventive care services Maintain a relationship with a provider in case of an illness Your height, weight, and body mass index (BMI) should be checked at every exam. During your exam, your provider may ask you about: Depression and anxiety Diet and exercise Alcohol and tobacco use Safety, such as use of seat belts and smoke detectors Your medicines and risk for interactions PROSTATE CANCER SCREENING If you're 55 through 69 years old, before having the test, talk to your provider about the pros and cons of having a PSA test. Ask about: Whether screening decreases your chance of dying from prostate cancer. Whether there is any harm from prostate cancer screening, such as side effects from testing or overtreatment of cancer when discovered. Whether you have a higher risk of prostate cancer than others. If you are age 55 or younger, screening is not generally recommended. You should talk with your provider about if you have a higher risk for prostate cancer. Risk factors include: Having a family history of prostate cancer (especially a brother or father) Being If you choose to be tested, the PSA blood test is repeated over time (yearly or less often), though the best frequency is not known. Prostate examinations are no longer routinely done on men with no symptoms. Prostate cancer SKIN EXAM Your provider may check your skin for signs of skin cancer, especially if you're at high risk. People at high risk include those who have had skin cancer before, have close relatives with skin cancer, or have a weakened immune system. TESTICULAR EXAM The [place] Preventive Services Task Force (USPSTF) now recommends against performing testicular self-exams. Doing testicular self-exams has been shown to have little to no benefit.
[2025-06-07 12:33] VITALS: BP 132/70; PULSE 76; RESP 12; TEMP 36.6; O2SAT 96; BMI 35.5
== END 2025-06-07 13:06 | disposition home or self-care (01) ==
LOC: HO.HMCFM 12:28
PROVIDERS: PCP Nurse Practitioner Family; Visit Provider Nurse Practitioner Family
DX: Z00.00 Encounter for general adult medical examination without abnormal findings (principal); F31.81 Bipolar II disorder; E66.9 Obesity, unspecified; Z68.35 Body mass index [BMI] 35.0-35.9, adult; G47.33 Obstructive sleep apnea (adult) (pediatric); E78.2 Mixed hyperlipidemia; J30.2 Other seasonal allergic rhinitis; R35.0 Frequency of micturition; Z28.21 Immunization not carried out because of patient refusal

== ENCOUNTER 2025-06-07 12:27 | Outpatient (REF) | payer OTHER, SELFPAY ==
[2025-06-07 15:21] LABS: Appearance Urine Clear; Glucose Urine UA Negative (Negative); PH 7.0 (5.0-9.0); Specific Gravity - Urine 1.015 (1.005-1.025)
[2025-06-07 16:37] LABS: Microalbum/Creatinine Ratio Ur 10.0 ug/mg cr (<30)
[2025-06-07 17:30] LABS: CT PCR Urine NOT DETECTED (Not Detect.); NG PCR Urine NOT DETECTED (Not Detect.)
[2025-06-07 18:41] LABS: Hematocrit 44.4 % (42.0-52.0); Hemoglobin 15.0 g/dl (14.0-18.0); Mean Corpuscular HGB Conc 33.8 g/dl (31.0-36.0); Mean Corpuscular Hemoglobin 28.4 pg (27.0-33.0); Mean Corpuscular Volume 84.1 fL (80.0-98.0); NRBC Abs Auto 0.000 X10*3/uL (0.0-0.012); NRBC Pct Auto 0.0 /100WBC (0.0-0.2); Platelet Count 406 X10*3/uL (160-400); Red Blood Count 5.28 X10*6/uL (4.60-5.80); White Blood Count 5.9 X10*3/uL (4.8-10.8)
[2025-06-07 19:01] LABS: Anion Gap 12 (12-20); Chloride 104 mmol/L (96-108); Potassium 4.5 mmol/L (3.3-5.1); Sodium 139 mmol/L (135-145)
[2025-06-07 19:06] LABS: Albumin Level 4.6 g/dL (3.5-5.0); Calcium 9.7 mg/dL (8.4-10.2); Carbon Dioxide 28 mmol/L (22-29); Cholesterol 248 mg/dL (<200); Total Protein 7.4 g/dL (6.5-8.0)
[2025-06-07 19:22] LABS: Alanine Aminotransferase 35 U/L (0-40); Alkaline Phosphatase 73 U/L (39-117); Aspartate Amino Transferase 33 U/L (5-37); Blood Urea Nitrogen 11 mg/dL (9-16); Estimated Glomerular Filt Rate > 60; HDL Cholesterol 49 mg/dL (>40); Triglycerides 149 mg/dL (<150)
[2025-06-07 20:07] LABS: Folate 10.6 ng/mL (> or = 4.0); Vitamin B12 603 pg/mL (200-900)
--- OUTSIDE RECORDS SUMMARY | 2025-06-07 20:27 | XMS_ITS | Clinical Summary ---
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 09/22/2023 Active clonazePAM (KLONOPIN) 1 MG tablet TAKE 1/2 (ONE-HALF) TABLET BY MOUTH TWICE DAILY NEEDED FOR ANXIETY 09/20/2023 Active divalproex (DEPAKOTE ER) 500 MG ER 24 hr tablet Take 1,000 mg by mouth nightly at bedtime. 09/22/2023 Active gabapentin (NEURONTIN) 300 MG capsule Take 1 capsule by mouth 2 (two) times a day. 09/14/2023 Active lamoTRIgine (LAMICTAL) 150 MG IMMEDIATE release tablet Take 1 tablet by mouth every morning. 09/03/2023 Active Active Problems No known active problems Immunizations Immunization Administration Dates Next Due Influenza Quadrivalent Preservative Free IM 02/2023 Social History Tobacco Use Types Packs/Day Years Used Date Smoking Tobacco: Never Smokeless Tobacco: Never Tobacco Cessation:Counseling Given: Not Answered Education Answer Date Recorded Are you interested in more education? Not on jaime e 10/06/2023 Are you concerned about learning? Not on file 10/06/2023 No 10/06/2023 No 10/06/2023 Digital Access Answer Date Recorded No 10/06/2023 No 10/06/2023 Reliable internet access at home? Not on file 10/06/2023 Device with a working camera? Not on file Sex and Gender Information Value Date Recorded Sex Assigned at Not on file Legal Sex Male 2:59 PM EST Gender Identity Not on file Sexual Orientation Not on file Last Filed Vital Signs Vital Sign Reading Time Taken Comments Blood Pressure 122/77 10/06/2023 1:40 PM EDT Pulse 73 10/06/2023 1:40 PM EDT Temperature 36.8 C (98.2 F) 10/06/2023 1:40 PM EDT Respiratory Rate 18 10/06/2023 1:40 PM EDT Oxygen Saturation 98% 10/06/2023 1:40 PM EDT Inhaled Oxygen Concentration - - Weight - - Height - - Body Mass Index - - Plan of Treatment Health Maintenance Due Date Last Done Comments Adult Td,Tdap Booster 1986 LIPID PANEL 1986 VALPROIC ACID (DEPAKENE) LEVEL 1986 DEPRESSION SCREENING 1998 HEPATITIS C SCREENING 01/14/2004 HIV ONE-TIME SCREENING (18-6 5 YEARS) 01/14/2004 INFLUENZA VACCINE (#1) 2025 04/06/2023 COVID-19 VACCINE (2 - 2024-2 6 season) 2025 04/21/2023 SMOKING STATUS SCREENING (On ce After 26 Yrs) Completed 10/06/2023 HEPATITIS A VACCINES Aged Out No long er eligible based on patient's age to complete this topic HIB VACCINES Aged Out No longer eligi ble based on patient's age to complete this topic MENINGOCOCCAL VACCINES (ACWY) Aged Out No longer eligible based on patient's age to complete this topic MENINGOCOCCAL VACCINES (B) Aged Out N o longer eligible based on patient's age to complete this topic PNEUMOCOCCAL VACCINES (0-49 years) Aged Out No longer eligible based on patient's age to complete this topic Medical Devices Not on file Insurance [facility] [place] [address] [place] [address] ACO ACO ACO Care Teams 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 It is not the complete legal health record.[facility]
[2025-06-08 05:19] LABS: Hemoglobin A1C 148.6229 umol/L
== END 2025-06-07 12:28 | disposition home or self-care (01) ==
LOC: HO.WFDLDS 12:27
PROVIDERS: PCP Nurse Practitioner Family; Visit Provider Nurse Practitioner Family
DX: Z00.00 Encounter for general adult medical examination without abnormal findings (principal); Z28.21 Immunization not carried out because of patient refusal; E78.5 Hyperlipidemia, unspecified; R35.0 Frequency of micturition; G47.33 Obstructive sleep apnea (adult) (pediatric); E78.2 Mixed hyperlipidemia; F31.81 Bipolar II disorder; E66.9 Obesity, unspecified; J30.2 Other seasonal allergic rhinitis; Z68.35 Body mass index [BMI] 35.0-35.9, adult
CPT/HCPCS: 80053; 80061; 81003; 82043; 82306; 82570; 82607; 82746; 83036; 84443; 85027; 87491; 87591; 96127; 99212; 99395